=== PATIENT | female | born 1950 | race Caucasian/White ===

== ENCOUNTER 2019-04-07 12:21 | Inpatient (IN) | payer BC, OTHER | END 2019-04-16 11:15 | LOC: JER 12:21 → J4S 04-08 22:10 → JERBED 13:51 → J4W 21:43 ==

== ENCOUNTER 2020-11-22 10:33 | Inpatient (IN) | payer OTHER ==
[2020-11-22] MEDS ORDERED: FUROSEMIDE 40 MG/4 ML INJECTABLE VIAL IVPUSH ONE (11:06)
[2020-11-22] MEDS ORDERED: FUROSEMIDE 40 MG/4 ML INJECTABLE VIAL ONE (11:24)
[2020-11-22 11:55] LABS: EOS % 1.1 % (0-4.5); HEMATOCRIT 52.1 % (32.4-45.2); HEMOGLOBIN 16.9 GM/dL (10.7-15.3); LYMPH % 7.7 % (8-40); MCH 28.9 pg (25.7-33.7); MCHC 32.5 g/dl (32.0-36.0); MEAN CELL VOLUME 88.9 fl (80-96); MEAN PLT VOLUME 9.4 fl (7.5-11.1); MONO % 3.7 % (3.8-10.2); NEUT % 86.5 % (42.8-82.8); PLATELET COUNT 430 K/MM3 (134-434); RBC 5.86 M/mm3 (3.60-5.2); RDW 15.4 % (11.6-15.6); WHITE BLOOD COUNT 2.8 K/mm3 (4.0-10.0)
[2020-11-22 11:59] LABS: VENOUS BASE EXCESS 7.7 mmol/L (-2-2); VENOUS O2 SATURATION 20.1 % (70-80); VENOUS PH 7.269 (7.310-7.410)
[2020-11-22 12:01] LABS: VENOUS PCO2 88.6 mmHg (38-52)
[2020-11-22 12:03] LABS: INR 1.29 (0.83-1.09); PROTHROMBIN TIME (PATIENT) 15.5 SEC (9.7-13.0)
[2020-11-22 12:06] LABS: ACTIVATED PTT 24.5 SECONDS (25.2-36.5)
[2020-11-22 12:14] LABS: CHLORIDE 94 mmol/L (98-107); SODIUM 135 mmol/L (136-145)
[2020-11-22 12:16] LABS: CALCIUM 8.9 mg/dL (8.5-10.1)
[2020-11-22 12:17] LABS: ALBUMIN 2.6 g/dl (3.4-5.0); BLOOD UREA NITROGEN 50.4 mg/dL (7-18); CO2 39 mmol/L (21-32); GLUCOSE,RANDOM 105 mg/dL (74-106)
[2020-11-22 12:20] LABS: CREATININE 1.1 mg/dL (0.55-1.3); SGOT/AST 92 U/L (15-37)
[2020-11-22 12:21] LABS: BILIRUBIN,TOTAL 1.3 mg/dL (0.2-1)
[2020-11-22 12:23] LABS: ALK PHOS 163 U/L (45-117)
[2020-11-22 12:25] LABS: N-TERMINAL BNP 21629.5 pg/ml (5-125)
[2020-11-22 12:28] LABS: ANION GAP 3 MMOL/L (8-16); SGPT/ALT 31 U/L (13-61)
[2020-11-22 12:50] LABS: BILIRUBIN,DIRECT 0.6 mg/dL (0.0-0.2)
[2020-11-22 13:17] LABS: BLOOD UREA NITROGEN 51.3 mg/dL (7-18); CALCIUM 8.9 mg/dL (8.5-10.1)
[2020-11-22 13:18] LABS: ALBUMIN 2.6 g/dl (3.4-5.0)
[2020-11-22 13:20] LABS: CREATININE 1.1 mg/dL (0.55-1.3)
[2020-11-22 13:22] LABS: BILIRUBIN,TOTAL 1.4 mg/dL (0.2-1); TOT PROT 6.1 g/dl (6.4-8.2)
[2020-11-22] MEDS ORDERED: DEXTROSE 50%-WATER - 25 GM/50 ML VIAL IVPUSH ONE (13:25)
[2020-11-22] MEDS ORDERED: DEXTROSE 50%-WATER 25 GM/50 ML DISP.SYRIN ONE (13:28)
[2020-11-22] MEDS ORDERED: ACETAMINOPHEN 1000 MG/100 ML VIAL (NON FORMULARY) IVPB ONE ×2 (13:42→23:09)
[2020-11-22] MEDS ORDERED: ACETAMINOPHEN INJECTION 100 ML IVPB ONE ×2 (13:43→23:19)
[2020-11-22 13:52] LABS: ANISOCYTOSIS 0; MACROCYTOSIS 0; PLATELET ESTIMATE NORMAL
[2020-11-22 14:49] LABS: URINE APPEARANCE CLEAR; URINE BILIRUBIN NEGATIVE (NEGATIVE); URINE COLOR YELLOW; URINE GLUCOSE (UA) NEGATIVE (NEGATIVE); URINE KETONE NEGATIVE (NEGATIVE); URINE LEUK ESTERASE NEGATIVE (NEGATIVE); URINE NITRITE NEGATIVE (NEGATIVE); URINE PROTEIN TRACE (NEGATIVE); URINE UROBILINOGEN 0.2 mg/dL (0.2-1.0)
[2020-11-22] MEDS: NOREPINEPHRINE NS PREMIX 8,000 MCG/500 ML BAG IVPB SCH (15:40)
[2020-11-22] MEDS ORDERED: VASOPRESSIN 40 UNITS in SODIUM CHLORIDE 98 ML IVPB SCH (17:30)
[2020-11-22] MEDS: VASOPRESSIN 40 UNITS in SODIUM CHLORIDE 98 ML IVPB SCH (17:50)
[2020-11-22] MEDS ORDERED: PIPERACILLIN/TAZOB 3.375 GM 3.375 GM/50 ML BAG IVPB ONE (20:09)
[2020-11-22] MEDS: PIPERACILLIN/TAZOB 3.375 GM 3.375 GM in DEXTROSE 5%-WATER - 50 ML IVPB SCH (20:11)
[2020-11-22] MEDS ORDERED: ACETAMINOPHEN 1000 MG/100 ML VIAL (NON FORMULARY) IVPB PRN (21:11)
[2020-11-22] MEDS: DEXTROSE 5%-LACTATED RINGERS 1,000 ML IV SCH (22:09)
[2020-11-22] MEDS: POTASSIUM CHLORIDE 20 MEQ PREMIX IVPB 100 ML IVPB SCH ×2 (22:09→23:27)
[2020-11-22] MEDS ORDERED: LIDOCAINE HCL 2% JELLY 10 ML CARTRIDGE ONE (22:11)
[2020-11-23] MEDS: PIPERACILLIN/TAZOB 3.375 GM 3.375 GM in DEXTROSE 5%-WATER - 50 ML IVPB SCH ×4 (04:57→19:50)
[2020-11-23] MEDS: CHLORHEXIDINE GLUCONATE 4% CLEANSER FOR DECOLONIZATION TP SCH ×2 (05:20→21:33)
[2020-11-23] MEDS ORDERED: DEXTROSE 5%-WATER - 50 ML IVPB ONE (05:33)
[2020-11-23] MEDS ORDERED: PIPERACILLIN/TAZOBACTAM 3.375 GM VIAL IVPB ONE (05:33)
[2020-11-23 07:07] LABS: HEMATOCRIT 47.7 % (32.4-45.2); HEMOGLOBIN 15.2 GM/dL (10.7-15.3); MCH 28.8 pg (25.7-33.7); MCHC 31.8 g/dl (32.0-36.0); MEAN CELL VOLUME 90.8 fl (80-96); MEAN PLT VOLUME 9.1 fl (7.5-11.1); PLATELET COUNT 306 K/MM3 (134-434); RBC 5.25 M/mm3 (3.60-5.2); RDW 15.4 % (11.6-15.6); WHITE BLOOD COUNT 11.1 K/mm3 (4.0-10.0)
[2020-11-23 07:15] LABS: INR 1.49 (0.83-1.09); PROTHROMBIN TIME (PATIENT) 17.8 SEC (9.7-13.0)
[2020-11-23 07:18] LABS: ACTIVATED PTT 30.9 SECONDS (25.2-36.5)
[2020-11-23 07:23] LABS: ALBUMIN 2.2 g/dl (3.4-5.0); BLOOD UREA NITROGEN 56.8 mg/dL (7-18); CALCIUM 8.4 mg/dL (8.5-10.1); MAGNESIUM 1.6 mg/dL (1.8-2.4)
[2020-11-23 07:26] LABS: PHOSPHOROUS 7.8 mg/dL (2.5-4.9)
[2020-11-23 07:27] LABS: CREATININE 1.4 mg/dL (0.55-1.3)
[2020-11-23 07:28] LABS: BILIRUBIN,TOTAL 1.6 mg/dL (0.2-1); TOT PROT 5.6 g/dl (6.4-8.2)
[2020-11-23] MEDS ORDERED: fentaNYL CITRATE 250 MCG/5 ML VIAL ONE (07:46)
[2020-11-23] MEDS ORDERED: SUCCINYLCHOLINE CHLORIDE 200 MG/10 ML SYRINGE ONE (07:53)
[2020-11-23] MEDS ORDERED: ROCURONIUM BROMIDE 50 MG/5 ML SYRINGE ONE (07:54)
[2020-11-23] MEDS ORDERED: MIDAZOLAM HCL 2 MG/2 ML SINGLE DOSE VIAL ONE ×2 (07:55)
[2020-11-23] MEDS ORDERED: KETAMINE HCL 200 MG/20 ML VIAL ONE (07:55)
[2020-11-23] MEDS ORDERED: PROPOFOL 20 ML ONE (07:56)
[2020-11-23 09:44] LABS: ARTERIAL BLD GAS O2 SATURATION 99.3 mmHg (95-98); ARTERIAL BLOOD GAS BASE EXCESS 5.8 mmol/L (-2-2); ARTERIAL BLOOD GAS PO2 232.9 mmHg (80-100); ARTERIAL BLOOD GAS pH 7.205 (7.350-7.450)
[2020-11-23] MEDS ORDERED: FUROSEMIDE 40 MG/4 ML INJECTABLE VIAL IVPUSH SCH (10:00)
[2020-11-23] MEDS ORDERED: LACTATED RINGERS SOLUTION 1,000 ML IV SCH (10:15)
[2020-11-23] MEDS: MUPIROCIN 2% TOPICAL OINTMENT FOR DECOLONIZATION NS SCH ×2 (10:56→21:33)
[2020-11-23] MEDS ORDERED: FLUCONAZOLE 400 MG/D5W 200 ML IVPB SCH (11:30)
[2020-11-23 11:48] LABS: ARTERIAL BLOOD GAS BASE EXCESS 1.4 mmol/L (-2-2); ARTERIAL BLOOD GAS PO2 188.9 mmHg (80-100); ARTERIAL BLOOD GAS pH 7.236 (7.350-7.450)
[2020-11-23 11:49] LABS: VENT MODE SIMV
[2020-11-23 11:50] LABS: VENT RATE 14
[2020-11-23] MEDS ORDERED: PROPOFOL 1,000,000 MCG/100 ML VIAL ONE (11:54)
[2020-11-23] MEDS: FLUCONAZOLE 200 MG/NS 100 ML IVPB SCH (12:00)
[2020-11-23] MEDS ORDERED: PT OWN MED DRAWER 7, Y5N ONE (15:37)
[2020-11-23] MEDS ORDERED: DEXTROSE 5% IVPB SCH (16:00)
[2020-11-23] MEDS ORDERED: GENTAMICIN IVPB SCH (16:00)
[2020-11-23] MEDS ORDERED: WATER IVPB SCH (16:00)
[2020-11-23] MEDS ORDERED: DEXTROSE 5%-WATER 100 ML IVPB ONE (16:34)
[2020-11-23] MEDS: CEFTRIAXONE 2 GM in DEXTROSE 5%-WATER 2 GM/100 ML BAG IVPB SCH (16:57)
[2020-11-23] MEDS: NOREPINEPHRINE NS PREMIX 8,000 MCG/500 ML BAG IVPB SCH (16:58)
[2020-11-23] MEDS ORDERED: PIPERACILLIN/TAZOB 3.375 GM 3.375 GM in DEXTROSE 5%-WATER - 50 ML IVPB SCH (18:00)
[2020-11-23] MEDS: PROPOFOL 1,000,000 MCG/100 ML VIAL IVPB SCH (19:00)
[2020-11-23] MEDS ORDERED: FENTANYL NS IVPB 500 MCG/100 ML BAG IVPB SCH (20:00)
[2020-11-23] MEDS: DEXTROSE 5%-LACTATED RINGERS 1,000 ML IV SCH (21:33)
[2020-11-23] MEDS: VASOPRESSIN 40 UNITS in SODIUM CHLORIDE 98 ML IVPB SCH (22:23)
[2020-11-24 07:15] LABS: HEMATOCRIT 43.4 % (32.4-45.2); HEMOGLOBIN 14.3 GM/dL (10.7-15.3); MCHC 32.9 g/dl (32.0-36.0); MEAN CELL VOLUME 88.1 fl (80-96); MEAN PLT VOLUME 9.5 fl (7.5-11.1); PLATELET COUNT 257 K/MM3 (134-434); RBC 4.92 M/mm3 (3.60-5.2); RDW 15.3 % (11.6-15.6); WHITE BLOOD COUNT 20.2 K/mm3 (4.0-10.0)
[2020-11-24 07:37] LABS: CALCIUM 8.1 mg/dL (8.5-10.1)
[2020-11-24 07:38] LABS: ALBUMIN 1.9 g/dl (3.4-5.0); BLOOD UREA NITROGEN 53.6 mg/dL (7-18)
[2020-11-24 07:41] LABS: CREATININE 1.2 mg/dL (0.55-1.3)
[2020-11-24 07:42] LABS: BILIRUBIN,TOTAL 1.4 mg/dL (0.2-1)
[2020-11-24] MEDS ORDERED: PT OWN MED DRAWER 7, Y5N ONE (08:35)
[2020-11-24] MEDS ORDERED: DEXTROSE 5%-WATER 100 ML IVPB ONE (08:36)
[2020-11-24] MEDS: CEFTRIAXONE 2 GM in DEXTROSE 5%-WATER 2 GM/100 ML BAG IVPB SCH (09:03)
[2020-11-24] MEDS: MUPIROCIN 2% TOPICAL OINTMENT FOR DECOLONIZATION NS SCH ×2 (09:03→21:28)
[2020-11-24] MEDS: PANTOPRAZOLE SODIUM 40 MG VIAL IVPUSH SCH (10:50)
[2020-11-24] MEDS: FLUCONAZOLE 200 MG/NS 100 ML IVPB SCH (10:51)
[2020-11-24] MEDS: FUROSEMIDE 40 MG/4 ML INJECTABLE VIAL IVPUSH SCH (12:07)
[2020-11-24] MEDS: methylPREDNISolone NA SUCC 40 MG/1 ML VIAL IVPUSH SCH ×3 (12:07→21:27)
[2020-11-24] MEDS: HEPARIN NA (PORCINE) 5,000 UNITS/ML 1ML VIAL SQ SCH ×2 (15:00→21:28)
[2020-11-24] MEDS: ALBUTEROL SO4 2.5/IPRATROPIUM 0.5 INH SOL 3 ML VIAL.NEB. NEB SCH ×2 (15:17→20:30)
[2020-11-24] MEDS: NOREPINEPHRINE NS PREMIX 8,000 MCG/500 ML BAG IVPB SCH (15:46)
[2020-11-24] MEDS: FENTANYL NS IVPB 500 MCG/100 ML BAG IVPB SCH (19:00)
[2020-11-24] MEDS: CHLORHEXIDINE GLUCONATE 4% CLEANSER FOR DECOLONIZATION TP SCH (21:28)
[2020-11-24] MEDS: VASOPRESSIN 40 UNITS in SODIUM CHLORIDE 98 ML IVPB SCH (21:28)
[2020-11-25] MEDS: methylPREDNISolone NA SUCC 40 MG/1 ML VIAL IVPUSH SCH ×3 (03:02→18:09)
[2020-11-25] MEDS: HEPARIN NA (PORCINE) 5,000 UNITS/ML 1ML VIAL SQ SCH ×3 (05:59→21:37)
[2020-11-25 07:17] LABS: BASO % 0.1 % (0-2.0); HEMATOCRIT 41.9 % (32.4-45.2); HEMOGLOBIN 13.7 GM/dL (10.7-15.3); LYMPH % 2.4 % (8-40); MCH 28.7 pg (25.7-33.7); MCHC 32.7 g/dl (32.0-36.0); MEAN CELL VOLUME 87.8 fl (80-96); MEAN PLT VOLUME 9.6 fl (7.5-11.1); MONO % 1.9 % (3.8-10.2); NEUT % 95.6 % (42.8-82.8); PLATELET COUNT 217 K/MM3 (134-434); RBC 4.77 M/mm3 (3.60-5.2); RDW 15.4 % (11.6-15.6); WHITE BLOOD COUNT 20.5 K/mm3 (4.0-10.0)
[2020-11-25] MEDS: ALBUTEROL SO4 2.5/IPRATROPIUM 0.5 INH SOL 3 ML VIAL.NEB. NEB SCH ×4 (07:30→20:30)
[2020-11-25 07:44] LABS: ALBUMIN 1.8 g/dl (3.4-5.0); BLOOD UREA NITROGEN 56.4 mg/dL (7-18); CALCIUM 8.9 mg/dL (8.5-10.1); MAGNESIUM 1.8 mg/dL (1.8-2.4)
[2020-11-25 07:47] LABS: PHOSPHOROUS 5.3 mg/dL (2.5-4.9)
[2020-11-25 07:48] LABS: CREATININE 1.2 mg/dL (0.55-1.3)
[2020-11-25 07:49] LABS: BILIRUBIN,TOTAL 0.9 mg/dL (0.2-1); TOT PROT 5.1 g/dl (6.4-8.2)
[2020-11-25] MEDS ORDERED: PT OWN MED DRAWER 7, Y5N ONE (09:46)
[2020-11-25] MEDS ORDERED: DEXTROSE 5%-WATER 100 ML IVPB ONE (09:47)
[2020-11-25] MEDS ORDERED: DEXTROSE 5%-WATER - 50 ML IVPB ONE ×3 (09:47→21:09)
[2020-11-25] MEDS ORDERED: PIPERACILLIN/TAZOBACTAM 2.25 GM VIAL IVPB ONE ×3 (09:47→21:09)
[2020-11-25] MEDS: PANTOPRAZOLE SODIUM 40 MG VIAL IVPUSH SCH ×2 (10:08→21:37)
[2020-11-25] MEDS: FLUCONAZOLE 200 MG/NS 100 ML IVPB SCH (10:08)
[2020-11-25] MEDS: FUROSEMIDE 40 MG/4 ML INJECTABLE VIAL IVPUSH SCH (10:08)
[2020-11-25] MEDS: CEFTRIAXONE 2 GM in DEXTROSE 5%-WATER 2 GM/100 ML BAG IVPB SCH (10:09)
[2020-11-25] MEDS: PIPERACILLIN/TAZOB 2.25 GM 2.25 GM in DEXTROSE 5%-WATER - 50 ML IVPB SCH ×2 (10:09→18:09)
[2020-11-25 11:13] LABS: ANISOCYTOSIS 1+; MACROCYTOSIS 1+; OVALOCYTE 1+; PLATELET ESTIMATE NORMAL; TARGET CELLS 1+; TEAR DROP CELLS 1+; TOXIC GRANULATION 2+
[2020-11-25] MEDS: MUPIROCIN 2% TOPICAL OINTMENT FOR DECOLONIZATION NS SCH ×2 (11:30→21:37)
[2020-11-25] MEDS: CHLORHEXIDINE GLUCONATE 4% CLEANSER FOR DECOLONIZATION TP SCH (21:37)
[2020-11-26] MEDS ORDERED: ACETAMINOPHEN 1000 MG/100 ML VIAL (NON FORMULARY) IVPB PRN (01:26)
[2020-11-26] MEDS: MORPHINE SULFATE 2 MG/ML VIAL IVPUSH PRN ×4 (02:06→23:51)
[2020-11-26] MEDS: methylPREDNISolone NA SUCC 40 MG/1 ML VIAL IVPUSH SCH ×3 (02:42→17:52)
[2020-11-26] MEDS: PIPERACILLIN/TAZOB 2.25 GM 2.25 GM in DEXTROSE 5%-WATER - 50 ML IVPB SCH ×3 (02:42→17:52)
[2020-11-26] MEDS: HEPARIN NA (PORCINE) 5,000 UNITS/ML 1ML VIAL SQ SCH ×3 (06:38→22:09)
[2020-11-26] MEDS: VASOPRESSIN 40 UNITS in SODIUM CHLORIDE 98 ML IVPB SCH ×2 (06:38→19:48)
[2020-11-26] MEDS: NOREPINEPHRINE NS PREMIX 8,000 MCG/500 ML BAG IVPB SCH ×2 (06:39→16:03)
[2020-11-26 07:48] LABS: HEMATOCRIT 44.3 % (32.4-45.2); HEMOGLOBIN 14.4 GM/dL (10.7-15.3); MCH 28.5 pg (25.7-33.7); MCHC 32.5 g/dl (32.0-36.0); MEAN CELL VOLUME 87.7 fl (80-96); PLATELET COUNT 230 K/MM3 (134-434); RBC 5.04 M/mm3 (3.60-5.2); WHITE BLOOD COUNT 23.7 K/mm3 (4.0-10.0)
[2020-11-26] MEDS: ALBUTEROL SO4 2.5/IPRATROPIUM 0.5 INH SOL 3 ML VIAL.NEB. NEB SCH ×4 (08:00→20:00)
[2020-11-26 08:03] LABS: BLOOD UREA NITROGEN 71.4 mg/dL (7-18); CALCIUM 9.1 mg/dL (8.5-10.1)
[2020-11-26 08:06] LABS: ALBUMIN 2.1 g/dl (3.4-5.0); CREATININE 1.5 mg/dL (0.55-1.3)
[2020-11-26 08:08] LABS: BILIRUBIN,TOTAL 0.8 mg/dL (0.2-1); TOT PROT 5.7 g/dl (6.4-8.2)
[2020-11-26] MEDS ORDERED: DEXTROSE 5%-WATER - 1,000 ML IV SCH (08:15)
[2020-11-26] MEDS ORDERED: PIPERACILLIN/TAZOBACTAM 2.25 GM VIAL IVPB ONE ×3 (09:29→22:49)
[2020-11-26] MEDS ORDERED: DEXTROSE 5%-WATER 100 ML IVPB ONE (09:29)
[2020-11-26] MEDS ORDERED: DEXTROSE 5%-WATER - 50 ML IVPB ONE ×3 (09:29→22:49)
[2020-11-26] MEDS ORDERED: PT OWN MED DRAWER 7, Y5N ONE ×2 (09:29→15:14)
[2020-11-26] MEDS: CEFTRIAXONE 2 GM in DEXTROSE 5%-WATER 2 GM/100 ML BAG IVPB SCH (09:53)
[2020-11-26] MEDS: FLUCONAZOLE 200 MG/NS 100 ML IVPB SCH (09:53)
[2020-11-26] MEDS: PANTOPRAZOLE SODIUM 40 MG VIAL IVPUSH SCH ×2 (09:53→22:09)
[2020-11-26] MEDS: FUROSEMIDE 40 MG/4 ML INJECTABLE VIAL IVPUSH SCH (09:53)
[2020-11-26] MEDS: MUPIROCIN 2% TOPICAL OINTMENT FOR DECOLONIZATION NS SCH ×2 (10:02→22:09)
[2020-11-26] MEDS: AMINO ACIDS 4.25%/D5W 1,000 ML IV SCH ×2 (16:02→23:35)
[2020-11-26] MEDS: PROPOFOL 1,000,000 MCG/100 ML VIAL IVPB SCH (19:10)
[2020-11-26] MEDS: FENTANYL NS IVPB 500 MCG/100 ML BAG IVPB SCH (19:10)
[2020-11-26] MEDS: CHLORHEXIDINE GLUCONATE 4% CLEANSER FOR DECOLONIZATION TP SCH (22:09)
[2020-11-27] MEDS: methylPREDNISolone NA SUCC 40 MG/1 ML VIAL IVPUSH SCH ×3 (00:59→17:17)
[2020-11-27] MEDS: PIPERACILLIN/TAZOB 2.25 GM 2.25 GM in DEXTROSE 5%-WATER - 50 ML IVPB SCH ×3 (00:59→17:17)
[2020-11-27] MEDS: AMINO ACIDS 4.25%/D5W 1,000 ML IV SCH ×3 (04:04→23:00)
[2020-11-27] MEDS: HEPARIN NA (PORCINE) 5,000 UNITS/ML 1ML VIAL SQ SCH ×3 (06:25→21:24)
[2020-11-27] MEDS: MORPHINE SULFATE 2 MG/ML VIAL IVPUSH PRN ×3 (06:45→21:24)
[2020-11-27 07:07] LABS: HEMOGLOBIN 14.7 GM/dL (10.7-15.3); MCH 28.1 pg (25.7-33.7); MCHC 31.9 g/dl (32.0-36.0); MEAN PLT VOLUME 9.8 fl (7.5-11.1); PLATELET COUNT 209 K/MM3 (134-434); RBC 5.23 M/mm3 (3.60-5.2); RDW 15.3 % (11.6-15.6); WHITE BLOOD COUNT 19.1 K/mm3 (4.0-10.0)
[2020-11-27 07:28] LABS: CALCIUM 8.3 mg/dL (8.5-10.1)
[2020-11-27 07:29] LABS: BLOOD UREA NITROGEN 66.7 mg/dL (7-18)
[2020-11-27 07:32] LABS: CREATININE 1.1 mg/dL (0.55-1.3)
[2020-11-27 07:33] LABS: BILIRUBIN,TOTAL 1.1 mg/dL (0.2-1); TOT PROT 5.4 g/dl (6.4-8.2)
[2020-11-27] MEDS: ALBUTEROL SO4 2.5/IPRATROPIUM 0.5 INH SOL 3 ML VIAL.NEB. NEB SCH ×4 (08:40→19:55)
[2020-11-27] MEDS ORDERED: MAGNESIUM SULF 50% (8.12 MEQ/2 ML-1 GM VIAL) IVPB ONE (08:53)
[2020-11-27] MEDS ORDERED: PIPERACILLIN/TAZOBACTAM 2.25 GM VIAL IVPB ONE ×2 (08:55→17:06)
[2020-11-27] MEDS ORDERED: DEXTROSE 5%-WATER - 50 ML IVPB ONE ×2 (08:55→17:06)
[2020-11-27] MEDS ORDERED: DEXTROSE 5%-WATER 100 ML IVPB ONE (08:56)
[2020-11-27] MEDS ORDERED: ACETAMINOPHEN INJECTION 100 ML IVPB ONE (08:57)
[2020-11-27] MEDS: ACETAMINOPHEN 1000 MG/100 ML VIAL (NON FORMULARY) IVPB PRN ×2 (09:09→18:01)
[2020-11-27] MEDS: PANTOPRAZOLE SODIUM 40 MG VIAL IVPUSH SCH ×2 (09:11→21:25)
[2020-11-27] MEDS: CEFTRIAXONE 2 GM in DEXTROSE 5%-WATER 2 GM/100 ML BAG IVPB SCH (09:12)
[2020-11-27] MEDS: KCL 10 MEQ IVPB 10 MEQ/100 ML INFUS.BAG IVPB SCH (10:39)
[2020-11-27] MEDS: MUPIROCIN 2% TOPICAL OINTMENT FOR DECOLONIZATION NS SCH ×2 (10:40→22:01)
[2020-11-27] MEDS ORDERED: PT OWN MED DRAWER 7, Y5N ONE (10:43)
[2020-11-27] MEDS: FLUCONAZOLE 200 MG/NS 100 ML IVPB SCH (10:45)
[2020-11-27] MEDS: CHLORHEXIDINE GLUCONATE 4% CLEANSER FOR DECOLONIZATION TP SCH (21:25)
[2020-11-28] MEDS ORDERED: PIPERACILLIN/TAZOBACTAM 2.25 GM VIAL IVPB ONE ×4 (01:00→21:17)
[2020-11-28] MEDS ORDERED: DEXTROSE 5%-WATER - 50 ML IVPB ONE ×4 (01:01→21:17)
[2020-11-28] MEDS: ACETAMINOPHEN 1000 MG/100 ML VIAL (NON FORMULARY) IVPB PRN ×2 (01:17→06:05)
[2020-11-28] MEDS: PIPERACILLIN/TAZOB 2.25 GM 2.25 GM in DEXTROSE 5%-WATER - 50 ML IVPB SCH ×3 (01:17→17:31)
[2020-11-28] MEDS: methylPREDNISolone NA SUCC 40 MG/1 ML VIAL IVPUSH SCH ×4 (01:18→21:51)
[2020-11-28] MEDS: MORPHINE SULFATE 2 MG/ML VIAL IVPUSH PRN ×4 (02:06→21:33)
[2020-11-28] MEDS: HEPARIN NA (PORCINE) 5,000 UNITS/ML 1ML VIAL SQ SCH ×3 (06:04→21:51)
[2020-11-28] MEDS: AMINO ACIDS 4.25%/D5W 1,000 ML IV SCH ×2 (06:06→15:03)
[2020-11-28 06:59] LABS: HEMATOCRIT 48.1 % (32.4-45.2); HEMOGLOBIN 15.1 GM/dL (10.7-15.3); MCH 28.1 pg (25.7-33.7); MCHC 31.4 g/dl (32.0-36.0); MEAN CELL VOLUME 89.6 fl (80-96); MEAN PLT VOLUME 9.7 fl (7.5-11.1); PLATELET COUNT 209 K/MM3 (134-434); RBC 5.36 M/mm3 (3.60-5.2); RDW 15.6 % (11.6-15.6); WHITE BLOOD COUNT 18.2 K/mm3 (4.0-10.0)
[2020-11-28 07:13] LABS: BLOOD UREA NITROGEN 56.3 mg/dL (7-18); CALCIUM 9.1 mg/dL (8.5-10.1)
[2020-11-28 07:17] LABS: CREATININE 0.8 mg/dL (0.55-1.3)
[2020-11-28 07:18] LABS: TOT PROT 5.3 g/dl (6.4-8.2)
[2020-11-28 08:29] LABS: ANISOCYTOSIS 1+; MACROCYTOSIS 0; PLATELET ESTIMATE NORMAL
[2020-11-28] MEDS ORDERED: PT OWN MED DRAWER 7, Y5N ONE (08:59)
[2020-11-28] MEDS ORDERED: DEXTROSE 5%-WATER 100 ML IVPB ONE (09:00)
[2020-11-28] MEDS: CEFTRIAXONE 2 GM in DEXTROSE 5%-WATER 2 GM/100 ML BAG IVPB SCH (09:41)
[2020-11-28] MEDS: PANTOPRAZOLE SODIUM 40 MG VIAL IVPUSH SCH ×2 (09:41→21:51)
[2020-11-28] MEDS: FLUCONAZOLE 200 MG/NS 100 ML IVPB SCH (09:41)
[2020-11-28] MEDS: ALBUTEROL SO4 2.5/IPRATROPIUM 0.5 INH SOL 3 ML VIAL.NEB. NEB SCH ×4 (10:43→20:39)
[2020-11-28] MEDS ORDERED: ACETAMINOPHEN INJECTION 100 ML IVPB ONE (17:17)
[2020-11-28] MEDS ORDERED: ACETAMINOPHEN 1000 MG/100 ML VIAL (NON FORMULARY) IVPB PRN (17:27)
[2020-11-28] MEDS: CHLORHEXIDINE GLUCONATE 4% CLEANSER FOR DECOLONIZATION TP SCH (21:51)
[2020-11-29] MEDS: AMINO ACIDS 4.25%/D5W 1,000 ML IV SCH ×2 (00:02→14:19)
[2020-11-29] MEDS: PIPERACILLIN/TAZOB 2.25 GM 2.25 GM in DEXTROSE 5%-WATER - 50 ML IVPB SCH ×3 (02:13→17:10)
[2020-11-29] MEDS: HEPARIN NA (PORCINE) 5,000 UNITS/ML 1ML VIAL SQ SCH ×3 (05:37→21:18)
[2020-11-29] MEDS: MORPHINE SULFATE 2 MG/ML VIAL IVPUSH PRN ×4 (05:38→22:31)
[2020-11-29 06:48] LABS: HEMATOCRIT 47.9 % (32.4-45.2); HEMOGLOBIN 15.2 GM/dL (10.7-15.3); MCH 28.6 pg (25.7-33.7); MCHC 31.7 g/dl (32.0-36.0); MEAN CELL VOLUME 90.2 fl (80-96); MEAN PLT VOLUME 10.2 fl (7.5-11.1); PLATELET COUNT 234 K/MM3 (134-434); RBC 5.31 M/mm3 (3.60-5.2); RDW 15.6 % (11.6-15.6); WHITE BLOOD COUNT 17.9 K/mm3 (4.0-10.0)
[2020-11-29] MEDS: ALBUTEROL SO4 2.5/IPRATROPIUM 0.5 INH SOL 3 ML VIAL.NEB. NEB SCH ×2 (07:25→20:00)
[2020-11-29 07:39] LABS: BLOOD UREA NITROGEN 46.9 mg/dL (7-18)
[2020-11-29 07:42] LABS: CREATININE 0.6 mg/dL (0.55-1.3)
[2020-11-29] MEDS ORDERED: PIPERACILLIN/TAZOBACTAM 2.25 GM VIAL IVPB ONE ×2 (09:38→17:08)
[2020-11-29] MEDS ORDERED: DEXTROSE 5%-WATER - 50 ML IVPB ONE ×2 (09:38→17:08)
[2020-11-29] MEDS ORDERED: DEXTROSE 5%-WATER 100 ML IVPB ONE (09:39)
[2020-11-29] MEDS: methylPREDNISolone NA SUCC 40 MG/1 ML VIAL IVPUSH SCH ×2 (09:42→21:18)
[2020-11-29] MEDS: PANTOPRAZOLE SODIUM 40 MG VIAL IVPUSH SCH ×2 (09:43→21:22)
[2020-11-29] MEDS: CEFTRIAXONE 2 GM in DEXTROSE 5%-WATER 2 GM/100 ML BAG IVPB SCH (09:46)
[2020-11-29] MEDS: FLUCONAZOLE 200 MG/NS 100 ML IVPB SCH (11:15)
[2020-11-29] MEDS ORDERED: FUROSEMIDE 40 MG/4 ML INJECTABLE VIAL IVPUSH ONE (13:09)
[2020-11-29] MEDS ORDERED: MORPHINE SULFATE 2 MG/ML VIAL IVPUSH ONE (17:06)
[2020-11-29] MEDS ORDERED: MORPHINE SULFATE 2 MG/ML VIAL ONE (17:08)
[2020-11-29] MEDS ORDERED: ACETAMINOPHEN 1000 MG/100 ML VIAL (NON FORMULARY) IVPB PRN (17:08)
[2020-11-29] MEDS ORDERED: ALBUTEROL SO4 2.5/IPRATROPIUM 0.5 INH SOL 3 ML VIAL.NEB. NEB ONE (19:29)
[2020-11-29] MEDS: CHLORHEXIDINE GLUCONATE 4% CLEANSER FOR DECOLONIZATION TP SCH (21:19)
[2020-11-30] MEDS ORDERED: DEXTROSE 5%-WATER - 50 ML IVPB ONE ×3 (01:48→17:08)
[2020-11-30] MEDS ORDERED: PIPERACILLIN/TAZOBACTAM 2.25 GM VIAL IVPB ONE ×3 (01:48→17:08)
[2020-11-30] MEDS: PIPERACILLIN/TAZOB 2.25 GM 2.25 GM in DEXTROSE 5%-WATER - 50 ML IVPB SCH ×3 (01:50→17:39)
[2020-11-30] MEDS: HEPARIN NA (PORCINE) 5,000 UNITS/ML 1ML VIAL SQ SCH ×3 (06:01→21:54)
[2020-11-30 06:45] LABS: HEMATOCRIT 54.4 % (32.4-45.2); HEMOGLOBIN 16.8 GM/dL (10.7-15.3); MCH 28.5 pg (25.7-33.7); MEAN PLT VOLUME 10.2 fl (7.5-11.1); PLATELET COUNT 262 K/MM3 (134-434); RBC 5.91 M/mm3 (3.60-5.2); RDW 15.8 % (11.6-15.6); WHITE BLOOD COUNT 18.5 K/mm3 (4.0-10.0)
[2020-11-30 07:21] LABS: ALBUMIN 1.9 g/dl (3.4-5.0); BILIRUBIN,TOTAL 0.7 mg/dL (0.2-1); BLOOD UREA NITROGEN 44.9 mg/dL (7-18); CALCIUM 9.1 mg/dL (8.5-10.1); CREATININE 0.7 mg/dL (0.55-1.3); TOT PROT 5.5 g/dl (6.4-8.2)
[2020-11-30] MEDS ORDERED: DEXTROSE 5%-WATER 100 ML IVPB ONE (08:53)
[2020-11-30] MEDS: PANTOPRAZOLE SODIUM 40 MG VIAL IVPUSH SCH ×2 (09:17→21:54)
[2020-11-30] MEDS: methylPREDNISolone NA SUCC 40 MG/1 ML VIAL IVPUSH SCH ×2 (09:17→21:54)
[2020-11-30] MEDS: CEFTRIAXONE 2 GM in DEXTROSE 5%-WATER 2 GM/100 ML BAG IVPB SCH (09:17)
[2020-11-30] MEDS: FLUCONAZOLE 200 MG/NS 100 ML IVPB SCH (09:48)
[2020-11-30] MEDS ORDERED: FUROSEMIDE 40 MG/4 ML INJECTABLE VIAL IVPUSH ONE (12:00)
[2020-11-30] MEDS: oxyCODONE HCL 5 MG TABLET PO PRN (12:30)
[2020-11-30] MEDS: CHLORHEXIDINE GLUCONATE 4% CLEANSER FOR DECOLONIZATION TP SCH (21:54)
[2020-11-30] MEDS: MORPHINE SULFATE 2 MG/ML VIAL IVPUSH PRN (21:57)
[2020-12-01] MEDS ORDERED: PIPERACILLIN/TAZOBACTAM 2.25 GM VIAL IVPB ONE ×3 (01:13→16:03)
[2020-12-01] MEDS ORDERED: DEXTROSE 5%-WATER - 50 ML IVPB ONE ×3 (01:13→16:03)
[2020-12-01] MEDS: PIPERACILLIN/TAZOB 2.25 GM 2.25 GM in DEXTROSE 5%-WATER - 50 ML IVPB SCH ×3 (01:20→17:02)
[2020-12-01] MEDS: HEPARIN NA (PORCINE) 5,000 UNITS/ML 1ML VIAL SQ SCH ×3 (06:11→21:27)
[2020-12-01] MEDS: oxyCODONE HCL 5 MG TABLET PO PRN ×2 (06:12→15:28)
[2020-12-01 07:47] LABS: HEMATOCRIT 49.9 % (32.4-45.2); HEMOGLOBIN 15.1 GM/dL (10.7-15.3); MCH 27.8 pg (25.7-33.7); MCHC 30.2 g/dl (32.0-36.0); MEAN CELL VOLUME 92.1 fl (80-96); MEAN PLT VOLUME 10.4 fl (7.5-11.1); PLATELET COUNT 317 K/MM3 (134-434); RBC 5.42 M/mm3 (3.60-5.2); RDW 15.9 % (11.6-15.6); WHITE BLOOD COUNT 16.9 K/mm3 (4.0-10.0)
[2020-12-01 07:58] LABS: CHLORIDE 97 mmol/L (98-107); SODIUM 143 mmol/L (136-145)
[2020-12-01 08:12] LABS: ALBUMIN 1.9 g/dl (3.4-5.0); CALCIUM 9.4 mg/dL (8.5-10.1); GLUCOSE,RANDOM 105 mg/dL (74-106)
[2020-12-01 08:16] LABS: CREATININE 0.7 mg/dL (0.55-1.3); SGOT/AST 31 U/L (15-37); SGPT/ALT 29 U/L (13-61)
[2020-12-01 08:18] LABS: BILIRUBIN,TOTAL 0.7 mg/dL (0.2-1); TOT PROT 5.3 g/dl (6.4-8.2)
[2020-12-01 08:22] LABS: ALK PHOS 199 U/L (45-117); ANION GAP 1 MMOL/L (8-16); CO2 > 45 mmol/L (21-32)
[2020-12-01] MEDS ORDERED: DEXTROSE 5%-WATER 100 ML IVPB ONE (09:53)
[2020-12-01] MEDS: FLUCONAZOLE 200 MG/NS 100 ML IVPB SCH (09:55)
[2020-12-01] MEDS: CEFTRIAXONE 2 GM in DEXTROSE 5%-WATER 2 GM/100 ML BAG IVPB SCH (09:56)
[2020-12-01] MEDS: PANTOPRAZOLE SODIUM 40 MG VIAL IVPUSH SCH ×2 (09:58→21:27)
[2020-12-01] MEDS: methylPREDNISolone NA SUCC 40 MG/1 ML VIAL IVPUSH SCH ×2 (09:58→21:27)
[2020-12-01] MEDS ORDERED: AMINO ACIDS 4.25%/D5W 1,000 ML IV SCH (13:00)
[2020-12-01] MEDS ORDERED: [UNRECOGNIZED DRUG - OTHER] IV SCH (13:00)
[2020-12-01] MEDS: CHLORHEXIDINE GLUCONATE 4% CLEANSER FOR DECOLONIZATION TP SCH (21:27)
[2020-12-02] MEDS ORDERED: PIPERACILLIN/TAZOBACTAM 2.25 GM VIAL IVPB ONE ×3 (02:31→17:05)
[2020-12-02] MEDS ORDERED: DEXTROSE 5%-WATER - 50 ML IVPB ONE ×3 (02:31→17:05)
[2020-12-02] MEDS: PIPERACILLIN/TAZOB 2.25 GM 2.25 GM in DEXTROSE 5%-WATER - 50 ML IVPB SCH ×3 (02:34→17:13)
[2020-12-02] MEDS: HEPARIN NA (PORCINE) 5,000 UNITS/ML 1ML VIAL SQ SCH ×3 (05:13→21:06)
[2020-12-02] MEDS ORDERED: MULTIVIT INJ. ADULT COMBO WITH VIT K 1 COMBO 10 ML VIAL IV SCH ×3 (07:04→13:00)
[2020-12-02 07:06] LABS: HEMATOCRIT 50.3 % (32.4-45.2); MCH 27.4 pg (25.7-33.7); MCHC 29.9 g/dl (32.0-36.0); MEAN CELL VOLUME 91.7 fl (80-96); MEAN PLT VOLUME 10.1 fl (7.5-11.1); PLATELET COUNT 370 K/MM3 (134-434); RBC 5.48 M/mm3 (3.60-5.2); RDW 16.5 % (11.6-15.6); WHITE BLOOD COUNT 18.2 K/mm3 (4.0-10.0)
[2020-12-02 07:17] LABS: CHLORIDE 97 mmol/L (98-107); SODIUM 143 mmol/L (136-145)
[2020-12-02 07:31] LABS: BLOOD UREA NITROGEN 30.7 mg/dL (7-18)
[2020-12-02 07:32] LABS: CALCIUM 9.2 mg/dL (8.5-10.1); GLUCOSE,RANDOM 142 mg/dL (74-106)
[2020-12-02 07:33] LABS: CREATININE 0.5 mg/dL (0.55-1.3); MAGNESIUM 2.3 mg/dL (1.8-2.4); PHOSPHOROUS 1.6 mg/dL (2.5-4.9); SGOT/AST 30 U/L (15-37); SGPT/ALT 36 U/L (13-61)
[2020-12-02 07:35] LABS: BILIRUBIN,TOTAL 0.5 mg/dL (0.2-1); TOT PROT 5.6 g/dl (6.4-8.2)
[2020-12-02 07:46] LABS: ALK PHOS 241 U/L (45-117); ANION GAP 1 MMOL/L (8-16); CO2 > 45 mmol/L (21-32)
[2020-12-02] MEDS ORDERED: PT OWN MED DRAWER 7, Y5N ONE ×2 (09:46→14:24)
[2020-12-02] MEDS ORDERED: DEXTROSE 5%-WATER 100 ML IVPB ONE (09:47)
[2020-12-02] MEDS: methylPREDNISolone NA SUCC 40 MG/1 ML VIAL IVPUSH SCH ×2 (09:49→21:05)
[2020-12-02] MEDS: PANTOPRAZOLE SODIUM 40 MG VIAL IVPUSH SCH ×2 (09:51→21:06)
[2020-12-02] MEDS: FLUCONAZOLE 200 MG/NS 100 ML IVPB SCH (09:51)
[2020-12-02] MEDS: CEFTRIAXONE 2 GM in DEXTROSE 5%-WATER 2 GM/100 ML BAG IVPB SCH (09:51)
[2020-12-02] MEDS: MORPHINE SULFATE 2 MG/ML VIAL IVPUSH PRN (09:53)
[2020-12-02] MEDS ORDERED: THIAMINE HCL 200 MG/2 ML VIAL IVPB SCH (10:00)
[2020-12-02] MEDS ORDERED: MORPHINE SULFATE 2 MG/ML VIAL IVPUSH PRN (11:23)
[2020-12-02] MEDS ORDERED: oxyCODONE HCL 5 MG TABLET PO PRN (11:23)
[2020-12-02] MEDS: AMINO ACIDS 4.25%/D5W 1,000 ML IV SCH (14:37)
[2020-12-02] MEDS: AMINO ACIDS/PROTEIN HYDROLYS 30 ML LIQUID.PKT PO SCH (17:13)
[2020-12-02] MEDS ORDERED: AMINO ACIDS/PROTEIN HYDROLYS 30 ML LIQUID.PKT PO SCH (17:30)
[2020-12-02] MEDS ORDERED: MELATONIN 5 MG TABLETS PO ONE (20:24)
[2020-12-02] MEDS ORDERED: CHLORHEXIDINE GLUCONATE 4% CLEANSER FOR DECOLONIZATION TP SCH (22:00)
[2020-12-03] MEDS ORDERED: DEXTROSE 5%-WATER - 50 ML IVPB ONE ×3 (00:29→17:44)
[2020-12-03] MEDS ORDERED: PIPERACILLIN/TAZOBACTAM 2.25 GM VIAL IVPB ONE ×3 (00:29→17:43)
[2020-12-03] MEDS: PIPERACILLIN/TAZOB 2.25 GM 2.25 GM in DEXTROSE 5%-WATER - 50 ML IVPB SCH ×3 (02:07→18:14)
[2020-12-03] MEDS: HEPARIN NA (PORCINE) 5,000 UNITS/ML 1ML VIAL SQ SCH ×3 (06:18→21:53)
[2020-12-03 06:31] LABS: BASO % 0.1 % (0-2.0); HEMATOCRIT 49.4 % (32.4-45.2); HEMOGLOBIN 15.4 GM/dL (10.7-15.3); LYMPH % 2.5 % (8-40); MCH 27.6 pg (25.7-33.7); MCHC 31.2 g/dl (32.0-36.0); MEAN CELL VOLUME 88.4 fl (80-96); MEAN PLT VOLUME 9.8 fl (7.5-11.1); MONO % 3.6 % (3.8-10.2); NEUT % 93.8 % (42.8-82.8); PLATELET COUNT 372 K/MM3 (134-434); RBC 5.59 M/mm3 (3.60-5.2); RDW 16.2 % (11.6-15.6); WHITE BLOOD COUNT 17.3 K/mm3 (4.0-10.0)
[2020-12-03 06:48] LABS: BLOOD UREA NITROGEN 29.3 mg/dL (7-18); CALCIUM 8.9 mg/dL (8.5-10.1); MAGNESIUM 2.1 mg/dL (1.8-2.4)
[2020-12-03 06:52] LABS: CREATININE 0.4 mg/dL (0.55-1.3); PHOSPHOROUS 1.3 mg/dL (2.5-4.9)
[2020-12-03 06:53] LABS: BILIRUBIN,TOTAL 0.8 mg/dL (0.2-1); TOT PROT 5.4 g/dl (6.4-8.2)
[2020-12-03] MEDS: AMINO ACIDS/PROTEIN HYDROLYS 30 ML LIQUID.PKT PO SCH ×2 (09:03→18:16)
[2020-12-03 09:20] LABS: ANISOCYTOSIS 0; MACROCYTOSIS 0; PLATELET ESTIMATE NORMAL
[2020-12-03] MEDS ORDERED: DEXTROSE 5%-WATER 100 ML IVPB ONE ×2 (09:50→10:03)
[2020-12-03] MEDS: methylPREDNISolone NA SUCC 40 MG/1 ML VIAL IVPUSH SCH ×2 (10:00→21:52)
[2020-12-03] MEDS ORDERED: FLUCONAZOLE 200 MG/NS 100 ML IVPB SCH (10:00)
[2020-12-03] MEDS: PANTOPRAZOLE SODIUM 40 MG VIAL IVPUSH SCH ×2 (10:00→22:02)
[2020-12-03] MEDS ORDERED: THIAMINE HCL 200 MG/2 ML VIAL IVPB SCH (10:00)
[2020-12-03] MEDS: MULTIVIT INJ. ADULT COMBO WITH VIT K 1 COMBO 10 ML VIAL IV SCH ×2 (10:00→14:04)
[2020-12-03] MEDS ORDERED: CEFTRIAXONE 2 GM in DEXTROSE 5%-WATER 2 GM/100 ML BAG IVPB SCH (10:00)
[2020-12-03] MEDS ORDERED: PT OWN MED DRAWER 7, Y5N ONE (13:22)
[2020-12-03] MEDS: AMINO ACIDS 4.25%/D5W 1,000 ML IV SCH (14:04)
[2020-12-03] MEDS ORDERED: oxyCODONE HCL 5 MG TABLET PO PRN (17:45)
[2020-12-03] MEDS ORDERED: MORPHINE SULFATE 2 MG/ML VIAL IVPUSH PRN (17:45)
[2020-12-03] MEDS ORDERED: HALOPERIDOL LACTATE 5 MG/ML IM ONE (21:26)
[2020-12-03] MEDS ORDERED: CHLORHEXIDINE GLUCONATE 4% CLEANSER FOR DECOLONIZATION TP SCH (22:00)
[2020-12-04] MEDS ORDERED: PIPERACILLIN/TAZOBACTAM 2.25 GM VIAL IVPB ONE ×2 (01:00→15:11)
[2020-12-04] MEDS ORDERED: DEXTROSE 5%-WATER - 50 ML IVPB ONE ×2 (01:01→15:12)
[2020-12-04] MEDS: PIPERACILLIN/TAZOB 2.25 GM 2.25 GM in DEXTROSE 5%-WATER - 50 ML IVPB SCH ×3 (01:02→17:29)
[2020-12-04] MEDS: HEPARIN NA (PORCINE) 5,000 UNITS/ML 1ML VIAL SQ SCH ×3 (06:29→23:16)
[2020-12-04] MEDS: AMINO ACIDS/PROTEIN HYDROLYS 30 ML LIQUID.PKT PO SCH ×2 (08:01→17:29)
[2020-12-04] MEDS: PANTOPRAZOLE SODIUM 40 MG VIAL IVPUSH SCH ×3 (10:59→23:20)
[2020-12-04] MEDS: methylPREDNISolone NA SUCC 40 MG/1 ML VIAL IVPUSH SCH ×3 (10:59→23:16)
[2020-12-04] MEDS: THIAMINE HCL 200 MG/2 ML VIAL IVPB SCH (11:00)
[2020-12-04] MEDS: MULTIVIT INJ. ADULT COMBO WITH VIT K 1 COMBO 10 ML VIAL IV SCH ×2 (11:04→16:15)
[2020-12-04] MEDS: AMINO ACIDS 4.25%/D5W 1,000 ML IV SCH (12:49)
[2020-12-05] MEDS ORDERED: PIPERACILLIN/TAZOBACTAM 2.25 GM VIAL IVPB ONE (01:46)
[2020-12-05] MEDS ORDERED: DEXTROSE 5%-WATER - 50 ML IVPB ONE (01:48)
[2020-12-05] MEDS: PIPERACILLIN/TAZOB 2.25 GM 2.25 GM in DEXTROSE 5%-WATER - 50 ML IVPB SCH (02:12)
[2020-12-05] MEDS: HEPARIN NA (PORCINE) 5,000 UNITS/ML 1ML VIAL SQ SCH ×3 (06:40→22:21)
[2020-12-05 08:31] LABS: BASO % 0.1 % (0-2.0); HEMATOCRIT 47.3 % (32.4-45.2); HEMOGLOBIN 15.4 GM/dL (10.7-15.3); LYMPH % 1.7 % (8-40); MCH 27.6 pg (25.7-33.7); MCHC 32.6 g/dl (32.0-36.0); MEAN CELL VOLUME 84.6 fl (80-96); MEAN PLT VOLUME 9.8 fl (7.5-11.1); NEUT % 95.2 % (42.8-82.8); PLATELET COUNT 356 K/MM3 (134-434); RBC 5.58 M/mm3 (3.60-5.2); RDW 16.1 % (11.6-15.6); WHITE BLOOD COUNT 20.5 K/mm3 (4.0-10.0)
[2020-12-05 08:51] LABS: CALCIUM 8.7 mg/dL (8.5-10.1)
[2020-12-05 08:53] LABS: ALBUMIN 2.1 g/dl (3.4-5.0); BLOOD UREA NITROGEN 20.3 mg/dL (7-18)
[2020-12-05 08:55] LABS: CREATININE 0.4 mg/dL (0.55-1.3)
[2020-12-05 08:56] LABS: BILIRUBIN,TOTAL 0.9 mg/dL (0.2-1); TOT PROT 5.3 g/dl (6.4-8.2)
[2020-12-05] MEDS ORDERED: DEXTROSE 5%-WATER 100 ML IVPB ONE (08:56)
[2020-12-05] MEDS: methylPREDNISolone NA SUCC 40 MG/1 ML VIAL IVPUSH SCH (09:54)
[2020-12-05] MEDS: AMINO ACIDS/PROTEIN HYDROLYS 30 ML LIQUID.PKT PO SCH ×2 (09:54→16:30)
[2020-12-05] MEDS: PANTOPRAZOLE SODIUM 40 MG VIAL IVPUSH SCH ×2 (09:55→22:18)
[2020-12-05] MEDS: THIAMINE HCL 200 MG/2 ML VIAL IVPB SCH (09:55)
[2020-12-05] MEDS ORDERED: CEFTRIAXONE 2 GM in DEXTROSE 5%-WATER 2 GM/100 ML BAG IVPB SCH (10:00)
[2020-12-05 10:41] LABS: ANISOCYTOSIS 2+; MACROCYTOSIS 0; PLATELET ESTIMATE NORMAL; TARGET CELLS 1+
[2020-12-05] MEDS: AMINO ACIDS 4.25%/D5W 1,000 ML IV SCH (15:59)
[2020-12-05] MEDS: MULTIVIT INJ. ADULT COMBO WITH VIT K 1 COMBO 10 ML VIAL IV SCH (17:32)
[2020-12-05] MEDS ORDERED: MORPHINE SULFATE 2 MG/ML VIAL IVPUSH PRN (20:21)
[2020-12-05] MEDS ORDERED: oxyCODONE HCL 5 MG TABLET PO PRN (20:21)
[2020-12-05] MEDS ORDERED: SODIUM CHLORIDE 0.9% 500 ML INFUS.BAG IV ONE (22:51)
[2020-12-06] MEDS ORDERED: SODIUM CHLORIDE 1,000 ML IV STA (01:15)
[2020-12-06] MEDS: LACTATED RINGERS SOLUTION 1,000 ML/1,000 ML INFUS.BAG IV SCH (02:00)
[2020-12-06] MEDS ORDERED: VANCOMYCIN 1 GM in D5W (PRE-DOCKED) 1,000 MG/250 ML IVPB ONE (04:18)
[2020-12-06] MEDS ORDERED: CEFEPIME HCL/D5W 2 GM/50 ML BAG IVPB SCH (04:30)
[2020-12-06 05:22] LABS: ARTERIAL BLD GAS O2 SATURATION 88.5 mmHg (95-98); ARTERIAL BLOOD GAS BASE EXCESS 7.4 mmol/L (-2-2); ARTERIAL BLOOD GAS pH 7.431 (7.350-7.450)
[2020-12-06 05:23] LABS: ALLENS TEST POSITIVE
[2020-12-06] MEDS: CEFEPIME 2 GM in SODIUM CHLORIDE 100 ML IVPB SCH ×3 (05:42→17:03)
[2020-12-06] MEDS: HYDROCORTISONE SOD SUCCINATE 100 MG/2 ML VIAL IVPUSH SCH ×3 (05:43→17:03)
[2020-12-06] MEDS: HEPARIN NA (PORCINE) 5,000 UNITS/ML 1ML VIAL SQ SCH ×2 (05:43→14:02)
[2020-12-06 06:07] LABS: INR 1.19 (0.83-1.09); PROTHROMBIN TIME (PATIENT) 14.6 SEC (9.7-13.0)
[2020-12-06 06:10] LABS: ACTIVATED PTT 21.1 SECONDS (25.2-36.5); BASO % 0.8 % (0-2.0); CALCIUM 8.1 mg/dL (8.5-10.1); HEMATOCRIT 49.6 % (32.4-45.2); LYMPH % 2.2 % (8-40); MCH 27.7 pg (25.7-33.7); MCHC 32.3 g/dl (32.0-36.0); MEAN CELL VOLUME 85.6 fl (80-96); MONO % 1.5 % (3.8-10.2); NEUT % 95.5 % (42.8-82.8); RBC 5.79 M/mm3 (3.60-5.2); RDW 16.3 % (11.6-15.6)
[2020-12-06 06:11] LABS: BLOOD UREA NITROGEN 37.3 mg/dL (7-18); MAGNESIUM 1.6 mg/dL (1.8-2.4)
[2020-12-06 06:14] LABS: CREATININE 0.8 mg/dL (0.55-1.3); PHOSPHOROUS 3.2 mg/dL (2.5-4.9)
[2020-12-06 06:19] LABS: N-TERMINAL BNP 20425.9 pg/ml (5-125)
[2020-12-06 06:49] LABS: LACTIC ACID 3.9 mmol/L (0.4-2.0)
[2020-12-06] MEDS: MULTIVIT INJ. ADULT COMBO WITH VIT K 1 COMBO 10 ML VIAL IV SCH ×2 (07:10→17:04)
[2020-12-06] MEDS: NOREPINEPHRINE BITARTRATE 8,000 MCG/500 ML BAG IVPB SCH (07:10)
[2020-12-06] MEDS: AMINO ACIDS/PROTEIN HYDROLYS 30 ML LIQUID.PKT PO SCH (08:22)
[2020-12-06] MEDS ORDERED: ceFAZolin SODIUM 1 GM VIAL IVPB ONE (09:05)
[2020-12-06] MEDS ORDERED: ASCORBIC ACID 500 MG TABLET (FP) PO SCH (10:00)
[2020-12-06] MEDS ORDERED: THIAMINE HCL 200 MG/2 ML VIAL IVPB SCH (10:00)
[2020-12-06] MEDS ORDERED: predniSONE 20 MG TABLET (UD) PO SCH (10:00)
[2020-12-06] MEDS: PANTOPRAZOLE SODIUM 40 MG VIAL IVPUSH SCH (10:23)
[2020-12-06] MEDS ORDERED: PT OWN MED DRAWER 7, Y5N ONE ×4 (10:49→17:01)
[2020-12-06 12:25] LABS: MEAN PLT VOLUME 10.9 fl (7.5-11.1); PLATELET COUNT 264 K/MM3 (134-434)
[2020-12-06 12:28] LABS: PLATELET ESTIMATE NORMAL
[2020-12-06] MEDS ORDERED: AMINO ACIDS 4.25%/D5W 1,000 ML IV SCH (13:00)
[2020-12-06] MEDS ORDERED: fentaNYL CITRATE 250 MCG/5 ML VIAL ONE (19:35)
[2020-12-06] MEDS ORDERED: PROPOFOL 20 ML ONE (19:36)
[2020-12-06] MEDS ORDERED: ROCURONIUM BROMIDE 50 MG/5 ML SYRINGE ONE (19:38)
[2020-12-06] MEDS ORDERED: EPHEDRINE SULFATE/0.9% NACL/PF 50 MG/10 ML SYRINGE NR ONE ×2 (19:39→21:03)
[2020-12-06] MEDS ORDERED: ETOMIDATE 20 MG/10 ML AMPUL IVPUSH ONE (21:05)
[2020-12-06] MEDS ORDERED: ESMOLOL HCL 100,000 MCG/10 ML VIAL ONE (21:13)
[2020-12-06] MEDS ORDERED: PHENYLEPHRINE HCL 10 MG/1 ML SINGLE DOSE VIAL ONE (21:23)
[2020-12-06] MEDS ORDERED: BENZOIN/ALOE VERA/STORAX/TOLU 58 ML BOTTLE ONE (22:01)
[2020-12-06] MEDS ORDERED: VECURONIUM BROMIDE 100 MG/100 ML BAG IVPB SCH (22:30)
[2020-12-06] MEDS ORDERED: MIDAZOLAM 100 MG in SODIUM CHLORIDE 100 ML IVPB SCH (22:30)
[2020-12-06] MEDS ORDERED: FENTANYL IVPB 500 MCG/100 ML BAG IVPB SCH (22:30)
[2020-12-06] MEDS ORDERED: MIDAZOLAM IN 0.9 % SOD.CHLORID 1 MG/1 ML PLAST..BAG ONE (22:48)
[2020-12-06] MEDS: FENTANYL IVPB 500 MCG/100 ML BAG IVPB SCH (23:39)
[2020-12-07] MEDS: AMINO ACIDS/PROTEIN HYDROLYS 30 ML LIQUID.PKT PO SCH (02:24)
[2020-12-07] MEDS: HEPARIN NA (PORCINE) 5,000 UNITS/ML 1ML VIAL SQ SCH ×2 (02:24→05:05)
[2020-12-07] MEDS: CEFEPIME 2 GM in DEXTROSE 5%-WATER 100 ML IVPB SCH ×2 (02:25→10:17)
[2020-12-07] MEDS: HYDROCORTISONE SOD SUCCINATE 100 MG/2 ML VIAL IVPUSH SCH ×3 (02:25→17:07)
[2020-12-07] MEDS: LACTATED RINGERS SOLUTION 1,000 ML/1,000 ML INFUS.BAG IV SCH ×2 (02:25→08:23)
[2020-12-07] MEDS: PANTOPRAZOLE SODIUM 40 MG VIAL IVPUSH SCH ×3 (02:25→21:40)
[2020-12-07] MEDS: MIDAZOLAM IN 0.9 % SOD.CHLORID 100 MG/100 ML PLAST..BAG IVPB SCH ×2 (04:26→10:27)
[2020-12-07] MEDS: NOREPINEPHRINE BITARTRATE 8,000 MCG/500 ML BAG IVPB SCH ×2 (05:05→10:15)
[2020-12-07 07:00] LABS: HEMATOCRIT 51.9 % (32.4-45.2); HEMOGLOBIN 16.5 GM/dL (10.7-15.3); MCH 27.6 pg (25.7-33.7); MCHC 31.8 g/dl (32.0-36.0); MEAN CELL VOLUME 86.9 fl (80-96); MEAN PLT VOLUME 12.8 fl (7.5-11.1); RBC 5.97 M/mm3 (3.60-5.2); RDW 16.3 % (11.6-15.6); WHITE BLOOD COUNT 22.5 K/mm3 (4.0-10.0)
[2020-12-07] MEDS ORDERED: MEROPENEM 1 GM in DEXTROSE 5%-WATER 100 ML IVPB ONE (07:20)
[2020-12-07 07:40] LABS: BLOOD UREA NITROGEN 54.3 mg/dL (7-18); CALCIUM 7.3 mg/dL (8.5-10.1); MAGNESIUM 1.8 mg/dL (1.8-2.4)
[2020-12-07 07:43] LABS: CREATININE 1.3 mg/dL (0.55-1.3)
[2020-12-07 07:44] LABS: PHOSPHOROUS 5.8 mg/dL (2.5-4.9)
[2020-12-07 07:45] LABS: BILIRUBIN,TOTAL 0.9 mg/dL (0.2-1)
[2020-12-07 07:49] LABS: ALBUMIN 1.2 g/dl (3.4-5.0)
[2020-12-07] MEDS ORDERED: oxyCODONE HCL 5 MG TABLET PO PRN (08:22)
[2020-12-07] MEDS ORDERED: MORPHINE SULFATE 2 MG/ML VIAL IVPUSH PRN (08:22)
[2020-12-07] MEDS ORDERED: PT OWN MED DRAWER 7, Y5N ONE (09:26)
[2020-12-07] MEDS ORDERED: ASCORBIC ACID 500 MG TABLET (FP) PO SCH (10:00)
[2020-12-07] MEDS ORDERED: CEFEPIME 2 GM in SODIUM CHLORIDE 100 ML IVPB SCH ×2 (10:00→18:00)
[2020-12-07] MEDS: MUPIROCIN 2% TOPICAL OINTMENT FOR DECOLONIZATION NS SCH ×2 (10:24→21:39)
[2020-12-07] MEDS: FENTANYL IVPB 500 MCG/100 ML BAG IVPB SCH (10:25)
[2020-12-07 11:43] LABS: PLATELET COUNT 58 K/MM3 (134-434)
[2020-12-07] MEDS ORDERED: AMINO ACIDS 4.25%/D5W 1,000 ML IV SCH (13:00)
[2020-12-07] MEDS ORDERED: VASOPRESSIN 40 UNITS in SODIUM CHLORIDE 98 ML IVPB SCH (13:00)
[2020-12-07] MEDS ORDERED: FLUDROCORTISONE ACETATE 0.1 MG TABLET (FP) PO SCH (14:00)
[2020-12-07] MEDS ORDERED: HEPARIN NA (PORCINE) 5,000 UNITS/ML 1ML VIAL SQ SCH (14:00)
[2020-12-07] MEDS ORDERED: BACITRACIN 15 GM TUBE TOPICAL OINTMENT ONE (15:17)
[2020-12-07] MEDS ORDERED: DEXTROSE 5%-WATER 100 ML IVPB ONE (16:05)
[2020-12-07] MEDS ORDERED: MEROPENEM 1 GM VIAL (RESTRICTED TO ID) IVPB ONE (16:05)
[2020-12-07] MEDS: MEROPENEM 1 GM in DEXTROSE 5%-WATER 100 ML IVPB SCH (17:02)
[2020-12-07] MEDS ORDERED: AMINO ACIDS/PROTEIN HYDROLYS 30 ML LIQUID.PKT PO SCH (17:30)
[2020-12-07] MEDS: [UNRECOGNIZED DRUG - OTHER] IVPB SCH (17:39)
[2020-12-07] MEDS: THIAMINE HCL IVPB SCH (17:39)
[2020-12-07] MEDS: SODIUM CHLORIDE IVPB SCH (17:39)
[2020-12-07] MEDS: FOLIC ACID IVPB SCH (17:39)
[2020-12-07] MEDS: VASOPRESSIN 40 UNITS in SODIUM CHLORIDE 98 ML IVPB SCH (18:40)
[2020-12-07 20:26] LABS: BASO % 0.6 % (0-2.0); EOS % 0.2 % (0-4.5); HEMOGLOBIN 14.6 GM/dL (10.7-15.3); LYMPH % 1.6 % (8-40); MCH 27.4 pg (25.7-33.7); MCHC 31.1 g/dl (32.0-36.0); MEAN CELL VOLUME 87.9 fl (80-96); MONO % 2.4 % (3.8-10.2); NEUT % 95.2 % (42.8-82.8); RBC 5.34 M/mm3 (3.60-5.2); RDW 16.4 % (11.6-15.6); WHITE BLOOD COUNT 19.5 K/mm3 (4.0-10.0)
[2020-12-07 20:49] LABS: PLATELET ESTIMATE MARKEDLY DECREASED
[2020-12-07] MEDS ORDERED: CHLORHEXIDINE GLUCONATE 4% CLEANSER FOR DECOLONIZATION TP SCH (22:00)
[2020-12-08] MEDS: FENTANYL IVPB 500 MCG/100 ML BAG IVPB SCH ×4 (01:33→20:09)
[2020-12-08] MEDS: HYDROCORTISONE SOD SUCCINATE 100 MG/2 ML VIAL IVPUSH SCH ×3 (01:33→18:22)
[2020-12-08] MEDS ORDERED: MEROPENEM 1 GM VIAL (RESTRICTED TO ID) IVPB ONE ×2 (02:49→16:30)
[2020-12-08] MEDS ORDERED: DEXTROSE 5%-WATER 100 ML IVPB ONE ×2 (02:49→16:30)
[2020-12-08] MEDS: MIDAZOLAM IN 0.9 % SOD.CHLORID 100 MG/100 ML PLAST..BAG IVPB SCH ×2 (03:01→20:09)
[2020-12-08] MEDS: MEROPENEM 1 GM in DEXTROSE 5%-WATER 100 ML IVPB SCH ×2 (03:02→16:32)
[2020-12-08 07:15] LABS: HEMATOCRIT 42.7 % (32.4-45.2); HEMOGLOBIN 13.5 GM/dL (10.7-15.3); LYMPH % 1.6 % (8-40); MCH 27.5 pg (25.7-33.7); MCHC 31.5 g/dl (32.0-36.0); MEAN CELL VOLUME 87.2 fl (80-96); MEAN PLT VOLUME 14.9 fl (7.5-11.1); MONO % 2.3 % (3.8-10.2); NEUT % 96.1 % (42.8-82.8); RDW 16.7 % (11.6-15.6); WHITE BLOOD COUNT 19.4 K/mm3 (4.0-10.0)
[2020-12-08 07:26] LABS: PLATELET COUNT 36 K/MM3 (134-434)
[2020-12-08 08:31] LABS: LACTIC ACID 2.4 mmol/L (0.4-2.0)
[2020-12-08] MEDS: LACTATED RINGERS SOLUTION 1,000 ML/1,000 ML INFUS.BAG IV SCH ×2 (08:34→20:08)
[2020-12-08 08:40] LABS: BLOOD UREA NITROGEN 68.7 mg/dL (7-18); CALCIUM 7.2 mg/dL (8.5-10.1); MAGNESIUM 1.8 mg/dL (1.8-2.4)
[2020-12-08 08:41] LABS: ALBUMIN 1.1 g/dl (3.4-5.0)
[2020-12-08 08:43] LABS: CREATININE 1.5 mg/dL (0.55-1.3)
[2020-12-08 08:44] LABS: BILIRUBIN,TOTAL 0.8 mg/dL (0.2-1)
[2020-12-08 08:45] LABS: TOT PROT 3.9 g/dl (6.4-8.2)
[2020-12-08] MEDS ORDERED: VANCOMYCIN 1 GM in D5W (PRE-DOCKED) 1,000 MG/250 ML IVPB ONE (09:12)
[2020-12-08] MEDS: MUPIROCIN 2% TOPICAL OINTMENT FOR DECOLONIZATION NS SCH ×2 (09:29→21:10)
[2020-12-08] MEDS: PANTOPRAZOLE SODIUM 40 MG VIAL IVPUSH SCH ×2 (09:29→21:11)
[2020-12-08 10:16] LABS: ANISOCYTOSIS 0; HELMET CELLS 0; HOWELL-JOLLY BODIES 0; MACROCYTOSIS 0; OVALOCYTE 0; PLATELET ESTIMATE DECREASED; ROULEAU 0; SICKELED CELLS 0; TARGET CELLS 0; TEAR DROP CELLS 0; TOXIC GRANULATION 0
[2020-12-08 10:42] LABS: INR 1.33 (0.83-1.09)
[2020-12-08 10:44] LABS: ACTIVATED PTT 39.6 SECONDS (25.2-36.5)
[2020-12-08 11:05] LABS: CALCIUM 7.4 mg/dL (8.5-10.1)
[2020-12-08 11:06] LABS: ALBUMIN 1.1 g/dl (3.4-5.0); BLOOD UREA NITROGEN 66.9 mg/dL (7-18)
[2020-12-08 11:09] LABS: CREATININE 1.4 mg/dL (0.55-1.3)
[2020-12-08 11:11] LABS: BILIRUBIN,TOTAL 0.9 mg/dL (0.2-1); TOT PROT 3.8 g/dl (6.4-8.2)
[2020-12-08] MEDS ORDERED: MULTIVIT INJ. ADULT COMBO WITH VIT K 1 COMBO 10 ML VIAL IV SCH (13:00)
[2020-12-08] MEDS: NOREPINEPHRINE BITARTRATE 8,000 MCG/500 ML BAG IVPB SCH ×2 (13:25→20:09)
[2020-12-08] MEDS: FOLIC ACID IVPB SCH (16:33)
[2020-12-08] MEDS: SODIUM CHLORIDE IVPB SCH (16:33)
[2020-12-08] MEDS: [UNRECOGNIZED DRUG - OTHER] IVPB SCH (16:33)
[2020-12-08] MEDS: THIAMINE HCL IVPB SCH (16:33)
[2020-12-08] MEDS: VASOPRESSIN 40 UNITS in SODIUM CHLORIDE 98 ML IVPB SCH ×2 (16:58→20:09)
[2020-12-08] MEDS ORDERED: MEROPENEM 1 GM in DEXTROSE 5%-WATER 100 ML IVPB ONE (19:33)
[2020-12-08] MEDS: CHLORHEXIDINE GLUCONATE 4% CLEANSER FOR DECOLONIZATION TP SCH (21:10)
[2020-12-08] MEDS: MULTIVIT INJ. ADULT COMBO WITH VIT K 1 COMBO 10 ML VIAL IV SCH (21:19)
[2020-12-08] MEDS: AMINO ACIDS/PROTEIN HYDROLYS 30 ML LIQUID.PKT PO SCH (21:20)
[2020-12-08] MEDS ORDERED: MUPIROCIN 2% TOPICAL OINTMENT FOR DECOLONIZATION NS SCH (22:00)
[2020-12-08] MEDS ORDERED: CHLORHEXIDINE GLUCONATE 4% CLEANSER FOR DECOLONIZATION TP SCH (22:00)
[2020-12-09] MEDS: HYDROCORTISONE SOD SUCCINATE 100 MG/2 ML VIAL IVPUSH SCH ×3 (02:14→18:08)
[2020-12-09] MEDS ORDERED: DEXTROSE 5%-WATER 100 ML IVPB ONE ×2 (02:48→16:12)
[2020-12-09] MEDS ORDERED: MEROPENEM 1 GM VIAL (RESTRICTED TO ID) IVPB ONE ×2 (02:48→16:12)
[2020-12-09] MEDS: MEROPENEM 1 GM in DEXTROSE 5%-WATER 100 ML IVPB SCH ×2 (03:05→16:15)
[2020-12-09 06:51] LABS: BASO % 0.1 % (0-2.0); HEMATOCRIT 37.3 % (32.4-45.2); HEMOGLOBIN 12.3 GM/dL (10.7-15.3); LYMPH % 1.9 % (8-40); MCH 28.1 pg (25.7-33.7); MEAN CELL VOLUME 85.1 fl (80-96); MEAN PLT VOLUME 9.7 fl (7.5-11.1); MONO % 2.9 % (3.8-10.2); NEUT % 95.1 % (42.8-82.8); RBC 4.38 M/mm3 (3.60-5.2); RDW 16.1 % (11.6-15.6); WHITE BLOOD COUNT 18.4 K/mm3 (4.0-10.0)
[2020-12-09 07:07] LABS: INR 1.14 (0.83-1.09); PROTHROMBIN TIME (PATIENT) 13.7 SEC (9.7-13.0)
[2020-12-09 07:10] LABS: ACTIVATED PTT 34.7 SECONDS (25.2-36.5)
[2020-12-09 07:16] LABS: ALBUMIN 1.1 g/dl (3.4-5.0); BLOOD UREA NITROGEN 73.3 mg/dL (7-18); CALCIUM 7.1 mg/dL (8.5-10.1); MAGNESIUM 1.8 mg/dL (1.8-2.4)
[2020-12-09 07:19] LABS: CREATININE 1.5 mg/dL (0.55-1.3); PHOSPHOROUS 4.1 mg/dL (2.5-4.9)
[2020-12-09 07:21] LABS: BILIRUBIN,TOTAL 0.7 mg/dL (0.2-1); TOT PROT 3.6 g/dl (6.4-8.2)
[2020-12-09] MEDS: PANTOPRAZOLE SODIUM 40 MG VIAL IVPUSH SCH ×2 (09:44→21:23)
[2020-12-09] MEDS: MUPIROCIN 2% TOPICAL OINTMENT FOR DECOLONIZATION NS SCH ×2 (09:44→21:23)
[2020-12-09] MEDS: FENTANYL IVPB 500 MCG/100 ML BAG IVPB SCH ×2 (10:00→19:10)
[2020-12-09 10:12] LABS: PLATELET COUNT 28 K/MM3 (134-434)
[2020-12-09] MEDS: LACTATED RINGERS SOLUTION 1,000 ML/1,000 ML INFUS.BAG IV SCH (11:07)
[2020-12-09 11:29] LABS: ANISOCYTOSIS 1+; MACROCYTOSIS 1+; PLATELET ESTIMATE DECREASED; TEAR DROP CELLS 1+; TOXIC GRANULATION 2+
[2020-12-09] MEDS ORDERED: FOLIC ACID IVPB SCH ×2 (16:00)
[2020-12-09] MEDS ORDERED: [UNRECOGNIZED DRUG - OTHER] IVPB SCH ×2 (16:00)
[2020-12-09] MEDS ORDERED: THIAMINE HCL IVPB SCH ×2 (16:00)
[2020-12-09] MEDS ORDERED: SODIUM CHLORIDE IVPB SCH ×2 (16:00)
[2020-12-09] MEDS: MIDAZOLAM IN 0.9 % SOD.CHLORID 100 MG/100 ML PLAST..BAG IVPB SCH (19:10)
[2020-12-09] MEDS: NOREPINEPHRINE BITARTRATE 8,000 MCG/500 ML BAG IVPB SCH (21:22)
[2020-12-09] MEDS: CHLORHEXIDINE GLUCONATE 4% CLEANSER FOR DECOLONIZATION TP SCH (21:23)
[2020-12-09] MEDS: FAT EMUL/SOY/MCT/OLIV/FISH OIL 250 ML IV SCH (22:04)
[2020-12-10] MEDS: HYDROCORTISONE SOD SUCCINATE 100 MG/2 ML VIAL IVPUSH SCH ×3 (03:00→17:18)
[2020-12-10] MEDS ORDERED: MEROPENEM 1 GM VIAL (RESTRICTED TO ID) IVPB ONE ×2 (03:09→15:08)
[2020-12-10] MEDS ORDERED: DEXTROSE 5%-WATER 100 ML IVPB ONE ×2 (03:09→15:08)
[2020-12-10] MEDS: MEROPENEM 1 GM in DEXTROSE 5%-WATER 100 ML IVPB SCH ×2 (03:25→15:28)
[2020-12-10 07:18] LABS: BASO % 0.2 % (0-2.0); EOS % 0.1 % (0-4.5); HEMATOCRIT 39.7 % (32.4-45.2); HEMOGLOBIN 12.9 GM/dL (10.7-15.3); LYMPH % 0.4 % (8-40); MCHC 32.4 g/dl (32.0-36.0); MEAN CELL VOLUME 86.3 fl (80-96); MONO % 0.9 % (3.8-10.2); NEUT % 98.4 % (42.8-82.8); RDW 16.1 % (11.6-15.6); WHITE BLOOD COUNT 13.5 K/mm3 (4.0-10.0)
[2020-12-10 07:19] LABS: INR 0.99 (0.83-1.09); PROTHROMBIN TIME (PATIENT) 12.2 SEC (9.7-13.0)
[2020-12-10 07:21] LABS: ACTIVATED PTT 30.7 SECONDS (25.2-36.5)
[2020-12-10 07:24] LABS: PLATELET COUNT 26 K/MM3 (134-434)
[2020-12-10 07:34] LABS: CALCIUM 7.5 mg/dL (8.5-10.1)
[2020-12-10 07:35] LABS: ALBUMIN 1.2 g/dl (3.4-5.0); BLOOD UREA NITROGEN 82.6 mg/dL (7-18)
[2020-12-10 07:38] LABS: CREATININE 1.5 mg/dL (0.55-1.3); PHOSPHOROUS 3.9 mg/dL (2.5-4.9)
[2020-12-10 07:39] LABS: BILIRUBIN,TOTAL 0.7 mg/dL (0.2-1); TOT PROT 4.1 g/dl (6.4-8.2)
[2020-12-10] MEDS: VASOPRESSIN 40 UNITS in SODIUM CHLORIDE 98 ML IVPB SCH (09:32)
[2020-12-10] MEDS: MIDAZOLAM IN 0.9 % SOD.CHLORID 100 MG/100 ML PLAST..BAG IVPB SCH ×2 (09:32→20:54)
[2020-12-10] MEDS: NOREPINEPHRINE BITARTRATE 8,000 MCG/500 ML BAG IVPB SCH ×2 (09:32→20:53)
[2020-12-10] MEDS: FENTANYL IVPB 500 MCG/100 ML BAG IVPB SCH ×2 (09:33→20:54)
[2020-12-10] MEDS: PANTOPRAZOLE SODIUM 40 MG VIAL IVPUSH SCH ×2 (09:40→21:06)
[2020-12-10] MEDS: MUPIROCIN 2% TOPICAL OINTMENT FOR DECOLONIZATION NS SCH ×2 (09:41→21:06)
[2020-12-10 10:17] LABS: PLATELET ESTIMATE DECREASED
[2020-12-10] MEDS ORDERED: PT OWN MED DRAWER 7, Y5N ONE ×2 (12:27→13:28)
[2020-12-10] MEDS: CASPOFUNGIN ACETATE 50 MG in SODIUM CHLORIDE 250 ML IVPB SCH (12:33)
[2020-12-10 14:08] LABS: HLA CLASS 1 ANTIBODY Negative (Negative)
[2020-12-10] MEDS: LACTATED RINGERS SOLUTION 1,000 ML/1,000 ML INFUS.BAG IV SCH (16:00)
[2020-12-10] MEDS: [UNRECOGNIZED DRUG - OTHER] IVPB SCH (16:40)
[2020-12-10] MEDS: THIAMINE HCL IVPB SCH (16:40)
[2020-12-10] MEDS: SODIUM CHLORIDE IVPB SCH (16:40)
[2020-12-10] MEDS: FOLIC ACID IVPB SCH (16:40)
[2020-12-10] MEDS: FAT EMUL/SOY/MCT/OLIV/FISH OIL 250 ML IV SCH (21:06)
[2020-12-10] MEDS: CHLORHEXIDINE GLUCONATE 4% CLEANSER FOR DECOLONIZATION TP SCH (21:06)
[2020-12-11] MEDS: HYDROCORTISONE SOD SUCCINATE 100 MG/2 ML VIAL IVPUSH SCH ×3 (01:57→17:10)
[2020-12-11 03:09] LABS: BASO % 0.2 % (0-2.0); EOS % 0.1 % (0-4.5); HEMATOCRIT 38.9 % (32.4-45.2); HEMOGLOBIN 12.7 GM/dL (10.7-15.3); LYMPH % 0.5 % (8-40); MCH 28.1 pg (25.7-33.7); MCHC 32.5 g/dl (32.0-36.0); MEAN CELL VOLUME 86.3 fl (80-96); MEAN PLT VOLUME 11.5 fl (7.5-11.1); MONO % 0.4 % (3.8-10.2); NEUT % 98.8 % (42.8-82.8); RBC 4.51 M/mm3 (3.60-5.2); RDW 16.3 % (11.6-15.6); WHITE BLOOD COUNT 12.5 K/mm3 (4.0-10.0)
[2020-12-11 03:12] LABS: PLATELET COUNT 27 K/MM3 (134-434)
[2020-12-11] MEDS ORDERED: MEROPENEM 1 GM VIAL (RESTRICTED TO ID) IVPB ONE ×2 (03:48→15:51)
[2020-12-11] MEDS ORDERED: DEXTROSE 5%-WATER 100 ML IVPB ONE ×2 (03:48→15:52)
[2020-12-11] MEDS: MEROPENEM 1 GM in DEXTROSE 5%-WATER 100 ML IVPB SCH ×2 (03:51→16:39)
[2020-12-11] MEDS: FENTANYL IVPB 500 MCG/100 ML BAG IVPB SCH ×2 (06:29→21:09)
[2020-12-11 06:57] LABS: BASO % 0.2 % (0-2.0); HEMATOCRIT 39.6 % (32.4-45.2); HEMOGLOBIN 12.7 GM/dL (10.7-15.3); LYMPH % 0.5 % (8-40); MCH 28.1 pg (25.7-33.7); MCHC 32.2 g/dl (32.0-36.0); MEAN CELL VOLUME 87.4 fl (80-96); MONO % 2.1 % (3.8-10.2); NEUT % 97.2 % (42.8-82.8); RBC 4.53 M/mm3 (3.60-5.2); RDW 16.4 % (11.6-15.6); WHITE BLOOD COUNT 12.9 K/mm3 (4.0-10.0)
[2020-12-11 07:02] LABS: PROTHROMBIN TIME (PATIENT) 12.1 SEC (9.7-13.0)
[2020-12-11 07:04] LABS: ACTIVATED PTT 30.3 SECONDS (25.2-36.5)
[2020-12-11 07:15] LABS: CALCIUM 7.4 mg/dL (8.5-10.1)
[2020-12-11 07:16] LABS: ALBUMIN 1.4 g/dl (3.4-5.0); BLOOD UREA NITROGEN 94.9 mg/dL (7-18); MAGNESIUM 2.3 mg/dL (1.8-2.4)
[2020-12-11 07:19] LABS: CREATININE 1.5 mg/dL (0.55-1.3); PHOSPHOROUS 3.3 mg/dL (2.5-4.9)
[2020-12-11 07:21] LABS: BILIRUBIN,TOTAL 0.7 mg/dL (0.2-1); TOT PROT 4.2 g/dl (6.4-8.2)
[2020-12-11 07:27] LABS: PLATELET COUNT 23 K/MM3 (134-434)
[2020-12-11 08:51] LABS: ANISOCYTOSIS 1+; MACROCYTOSIS 0; PLATELET ESTIMATE DECREASED
[2020-12-11] MEDS: PANTOPRAZOLE SODIUM 40 MG VIAL IVPUSH SCH ×2 (10:30→21:24)
[2020-12-11] MEDS: MUPIROCIN 2% TOPICAL OINTMENT FOR DECOLONIZATION NS SCH ×2 (10:30→21:24)
[2020-12-11] MEDS: CASPOFUNGIN ACETATE 50 MG in SODIUM CHLORIDE 250 ML IVPB SCH (10:52)
[2020-12-11] MEDS ORDERED: PT OWN MED DRAWER 7, Y5N ONE (20:57)
[2020-12-11] MEDS: MIDAZOLAM IN 0.9 % SOD.CHLORID 100 MG/100 ML PLAST..BAG IVPB SCH (21:09)
[2020-12-11] MEDS: NOREPINEPHRINE BITARTRATE 8,000 MCG/500 ML BAG IVPB SCH (21:09)
[2020-12-11] MEDS: [UNRECOGNIZED DRUG - OTHER] IVPB SCH (21:10)
[2020-12-11] MEDS: FOLIC ACID IVPB SCH (21:10)
[2020-12-11] MEDS: SODIUM CHLORIDE IVPB SCH (21:10)
[2020-12-11] MEDS: THIAMINE HCL IVPB SCH (21:10)
[2020-12-11] MEDS: CHLORHEXIDINE GLUCONATE 4% CLEANSER FOR DECOLONIZATION TP SCH (21:24)
[2020-12-11] MEDS: FAT EMUL/SOY/MCT/OLIV/FISH OIL 250 ML IV SCH (21:24)
[2020-12-12] MEDS ORDERED: DEXTROSE 5%-WATER 100 ML IVPB ONE ×2 (01:07→02:53)
[2020-12-12] MEDS ORDERED: MEROPENEM 1 GM VIAL (RESTRICTED TO ID) IVPB ONE ×2 (01:07→02:53)
[2020-12-12] MEDS: HYDROCORTISONE SOD SUCCINATE 100 MG/2 ML VIAL IVPUSH SCH ×3 (01:09→17:09)
[2020-12-12] MEDS: FENTANYL IVPB 500 MCG/100 ML BAG IVPB SCH ×3 (03:00→21:25)
[2020-12-12] MEDS: MEROPENEM 1 GM in DEXTROSE 5%-WATER 100 ML IVPB SCH (03:01)
[2020-12-12 07:06] LABS: BASO % 0.1 % (0-2.0); HEMATOCRIT 36.3 % (32.4-45.2); HEMOGLOBIN 12.1 GM/dL (10.7-15.3); LYMPH % 0.6 % (8-40); MCH 28.8 pg (25.7-33.7); MCHC 33.4 g/dl (32.0-36.0); MEAN CELL VOLUME 86.2 fl (80-96); MEAN PLT VOLUME 9.4 fl (7.5-11.1); MONO % 2.4 % (3.8-10.2); NEUT % 96.9 % (42.8-82.8); RBC 4.21 M/mm3 (3.60-5.2); RDW 16.3 % (11.6-15.6); WHITE BLOOD COUNT 10.6 K/mm3 (4.0-10.0)
[2020-12-12 07:19] LABS: ALBUMIN 1.3 g/dl (3.4-5.0); MAGNESIUM 2.3 mg/dL (1.8-2.4)
[2020-12-12 07:21] LABS: CREATININE 1.4 mg/dL (0.55-1.3)
[2020-12-12 07:22] LABS: BILIRUBIN,TOTAL 0.7 mg/dL (0.2-1); PHOSPHOROUS 2.2 mg/dL (2.5-4.9); PLATELET COUNT 18 K/MM3 (134-434)
[2020-12-12] MEDS ORDERED: SODIUM PHOSPHATE - 15 MM in DEXTROSE 5%-WATER - 250 ML IVPB ONE (09:00)
[2020-12-12] MEDS: PANTOPRAZOLE SODIUM 40 MG VIAL IVPUSH SCH ×2 (09:15→21:26)
[2020-12-12] MEDS: MUPIROCIN 2% TOPICAL OINTMENT FOR DECOLONIZATION NS SCH ×2 (09:30→21:25)
[2020-12-12] MEDS: CASPOFUNGIN ACETATE 50 MG in SODIUM CHLORIDE 250 ML IVPB SCH (10:32)
[2020-12-12 10:48] LABS: ANISOCYTOSIS 1+; MACROCYTOSIS 1+; PLATELET ESTIMATE DECREASED
[2020-12-12] MEDS: FOLIC ACID IVPB SCH (18:54)
[2020-12-12] MEDS: SODIUM CHLORIDE IVPB SCH (18:54)
[2020-12-12] MEDS: [UNRECOGNIZED DRUG - OTHER] IVPB SCH (18:54)
[2020-12-12] MEDS: THIAMINE HCL IVPB SCH (18:54)
[2020-12-12] MEDS: NOREPINEPHRINE BITARTRATE 8,000 MCG/500 ML BAG IVPB SCH (21:23)
[2020-12-12] MEDS: CHLORHEXIDINE GLUCONATE 4% CLEANSER FOR DECOLONIZATION TP SCH (21:25)
[2020-12-12] MEDS: MIDAZOLAM IN 0.9 % SOD.CHLORID 100 MG/100 ML PLAST..BAG IVPB SCH (21:25)
[2020-12-12] MEDS: FAT EMUL/SOY/MCT/OLIV/FISH OIL 250 ML IV SCH (22:14)
[2020-12-13] MEDS: HYDROCORTISONE SOD SUCCINATE 100 MG/2 ML VIAL IVPUSH SCH ×2 (01:05→09:23)
[2020-12-13 06:57] LABS: HEMATOCRIT 34.1 % (32.4-45.2); HEMOGLOBIN 11.2 GM/dL (10.7-15.3); MCH 28.7 pg (25.7-33.7); MCHC 32.9 g/dl (32.0-36.0); MEAN CELL VOLUME 87.1 fl (80-96); MEAN PLT VOLUME 8.8 fl (7.5-11.1); PLATELET COUNT 122 K/MM3 (134-434); RBC 3.91 M/mm3 (3.60-5.2); RDW 16.5 % (11.6-15.6); WHITE BLOOD COUNT 11.7 K/mm3 (4.0-10.0)
[2020-12-13 07:16] LABS: CHLORIDE 106 mmol/L (98-107); SODIUM 140 mmol/L (136-145)
[2020-12-13 07:28] LABS: CALCIUM 7.7 mg/dL (8.5-10.1)
[2020-12-13 07:29] LABS: ANION GAP 8 MMOL/L (8-16); CO2 26 mmol/L (21-32); GLUCOSE,RANDOM 305 mg/dL (74-106); MAGNESIUM 2.6 mg/dL (1.8-2.4)
[2020-12-13 07:31] LABS: CREATININE 1.2 mg/dL (0.55-1.3)
[2020-12-13 07:32] LABS: PHOSPHOROUS 2.5 mg/dL (2.5-4.9); SGOT/AST 27 U/L (15-37); SGPT/ALT 19 U/L (13-61)
[2020-12-13 07:34] LABS: BILIRUBIN,TOTAL 0.9 mg/dL (0.2-1); TOT PROT 4.5 g/dl (6.4-8.2)
[2020-12-13 07:35] LABS: ALK PHOS 144 U/L (45-117)
[2020-12-13 07:36] LABS: ALBUMIN 1.8 g/dl (3.4-5.0); BLOOD UREA NITROGEN 108.1 mg/dL (7-18)
[2020-12-13] MEDS: PANTOPRAZOLE SODIUM 40 MG VIAL IVPUSH SCH ×2 (09:23→21:46)
[2020-12-13] MEDS ORDERED: PT OWN MED DRAWER 7, Y5N ONE (10:23)
[2020-12-13] MEDS: MUPIROCIN 2% TOPICAL OINTMENT FOR DECOLONIZATION NS SCH ×2 (10:25→22:35)
[2020-12-13] MEDS: CASPOFUNGIN ACETATE 50 MG in SODIUM CHLORIDE 250 ML IVPB SCH (11:31)
[2020-12-13] MEDS ORDERED: HYDROCORTISONE SOD SUCCINATE 100 MG/2 ML VIAL IVPUSH SCH (11:48)
[2020-12-13] MEDS ORDERED: FENTANYL IVPB 500 MCG/100 ML BAG IVPB ONE (12:35)
[2020-12-13] MEDS ORDERED: FENTANYL NS IVPB 500 MCG/100 ML BAG IVPB SCH (12:45)
[2020-12-13] MEDS ORDERED: ROCURONIUM BROMIDE 50 MG/5 ML SYRINGE ONE (14:15)
[2020-12-13] MEDS: THIAMINE HCL IVPB SCH (16:09)
[2020-12-13] MEDS: FOLIC ACID IVPB SCH (16:09)
[2020-12-13] MEDS: SODIUM CHLORIDE IVPB SCH (16:09)
[2020-12-13] MEDS: [UNRECOGNIZED DRUG - OTHER] IVPB SCH (16:09)
[2020-12-13] MEDS: MIDAZOLAM IN 0.9 % SOD.CHLORID 100 MG/100 ML PLAST..BAG IVPB SCH ×2 (19:00→19:23)
[2020-12-13] MEDS: NOREPINEPHRINE BITARTRATE 8,000 MCG/500 ML BAG IVPB SCH (19:23)
[2020-12-13] MEDS: FENTANYL NS IVPB 500 MCG/100 ML BAG IVPB SCH ×2 (19:24→19:30)
[2020-12-13] MEDS: FAT EMUL/SOY/MCT/OLIV/FISH OIL 250 ML IV SCH (21:46)
[2020-12-13] MEDS: CHLORHEXIDINE GLUCONATE 4% CLEANSER FOR DECOLONIZATION TP SCH (22:30)
[2020-12-14] MEDS: HYDROCORTISONE SOD SUCCINATE 100 MG/2 ML VIAL IVPUSH SCH ×3 (02:49→17:08)
[2020-12-14] MEDS: NOREPINEPHRINE BITARTRATE 8,000 MCG/500 ML BAG IVPB SCH ×2 (03:24→21:39)
[2020-12-14 06:03] LABS: BASO % 0.1 % (0-2.0); EOS % 0.3 % (0-4.5); HEMATOCRIT 37.9 % (32.4-45.2); HEMOGLOBIN 12.4 GM/dL (10.7-15.3); LYMPH % 0.9 % (8-40); MCH 28.1 pg (25.7-33.7); MCHC 32.7 g/dl (32.0-36.0); MEAN CELL VOLUME 86.1 fl (80-96); MEAN PLT VOLUME 9.7 fl (7.5-11.1); NEUT % 96.7 % (42.8-82.8); PLATELET COUNT 70 K/MM3 (134-434); RDW 16.4 % (11.6-15.6); WHITE BLOOD COUNT 14.8 K/mm3 (4.0-10.0)
[2020-12-14 06:21] LABS: INR 1.11 (0.83-1.09); PROTHROMBIN TIME (PATIENT) 13.6 SEC (9.7-13.0)
[2020-12-14 06:22] LABS: ALBUMIN 1.7 g/dl (3.4-5.0); CALCIUM 7.9 mg/dL (8.5-10.1)
[2020-12-14 06:23] LABS: BLOOD UREA NITROGEN 101.4 mg/dL (7-18); MAGNESIUM 2.4 mg/dL (1.8-2.4)
[2020-12-14 06:24] LABS: ACTIVATED PTT 27.9 SECONDS (25.2-36.5)
[2020-12-14 06:26] LABS: PHOSPHOROUS 2.7 mg/dL (2.5-4.9)
[2020-12-14 06:27] LABS: BILIRUBIN,TOTAL 1.3 mg/dL (0.2-1); TOT PROT 4.5 g/dl (6.4-8.2)
[2020-12-14] MEDS: PANTOPRAZOLE SODIUM 40 MG VIAL IVPUSH SCH ×2 (09:24→21:39)
[2020-12-14 09:29] LABS: ANISOCYTOSIS 0; MACROCYTOSIS 0; OVALOCYTE 1+; PLATELET ESTIMATE DECREASED
[2020-12-14] MEDS ORDERED: ALBUMIN HUMAN 25% 12.5 GM/50 ML VIAL IVPB SCH (09:30)
[2020-12-14] MEDS: MUPIROCIN 2% TOPICAL OINTMENT FOR DECOLONIZATION NS SCH ×2 (09:31→21:39)
[2020-12-14] MEDS ORDERED: ALBUMIN HUMAN 25% 100 ML VIAL IVPB ONE (10:50)
[2020-12-14] MEDS ORDERED: FUROSEMIDE 40 MG/4 ML INJECTABLE VIAL IVPUSH ONE (12:00)
[2020-12-14] MEDS: CASPOFUNGIN ACETATE 50 MG in SODIUM CHLORIDE 250 ML IVPB SCH (12:15)
[2020-12-14] MEDS ORDERED: FOLIC ACID IVPB SCH ×2 (16:00)
[2020-12-14] MEDS ORDERED: [UNRECOGNIZED DRUG - OTHER] IVPB SCH (16:00)
[2020-12-14] MEDS ORDERED: [UNRECOGNIZED DRUG - OTHER] IVPB SCH (16:00)
[2020-12-14] MEDS ORDERED: SODIUM CHLORIDE IVPB SCH ×2 (16:00)
[2020-12-14] MEDS ORDERED: THIAMINE HCL IVPB SCH ×2 (16:00)
[2020-12-14] MEDS: PROPOFOL 1,000,000 MCG/100 ML VIAL IVPB SCH (17:07)
[2020-12-14] MEDS: FENTANYL NS IVPB 500 MCG/100 ML BAG IVPB SCH (17:08)
[2020-12-14] MEDS ORDERED: PT OWN MED DRAWER 7, Y5N ONE (21:38)
[2020-12-14] MEDS: FAT EMUL/SOY/MCT/OLIV/FISH OIL 250 ML IV SCH (21:39)
[2020-12-14] MEDS: CHLORHEXIDINE GLUCONATE 4% CLEANSER FOR DECOLONIZATION TP SCH (21:39)
[2020-12-15] MEDS: HYDROCORTISONE SOD SUCCINATE 100 MG/2 ML VIAL IVPUSH SCH ×3 (01:14→17:00)
[2020-12-15 06:31] LABS: EOS % 0.1 % (0-4.5); HEMATOCRIT 32.1 % (32.4-45.2); HEMOGLOBIN 10.5 GM/dL (10.7-15.3); LYMPH % 1.1 % (8-40); MCH 27.9 pg (25.7-33.7); MCHC 32.8 g/dl (32.0-36.0); MEAN CELL VOLUME 85.1 fl (80-96); MONO % 1.7 % (3.8-10.2); NEUT % 97.1 % (42.8-82.8); PLATELET COUNT 53 K/MM3 (134-434); RBC 3.77 M/mm3 (3.60-5.2); RDW 16.4 % (11.6-15.6); WHITE BLOOD COUNT 13.2 K/mm3 (4.0-10.0)
[2020-12-15 06:33] LABS: INR 1.14 (0.83-1.09); PROTHROMBIN TIME (PATIENT) 13.7 SEC (9.7-13.0)
[2020-12-15] MEDS: FENTANYL NS IVPB 500 MCG/100 ML BAG IVPB SCH ×2 (06:33→19:49)
[2020-12-15 06:36] LABS: ACTIVATED PTT 29.4 SECONDS (25.2-36.5)
[2020-12-15 07:32] LABS: BLOOD UREA NITROGEN 102.5 mg/dL (7-18); CALCIUM 7.3 mg/dL (8.5-10.1); MAGNESIUM 2.2 mg/dL (1.8-2.4)
[2020-12-15 07:35] LABS: CREATININE 0.9 mg/dL (0.55-1.3)
[2020-12-15 07:36] LABS: PHOSPHOROUS 3.8 mg/dL (2.5-4.9)
[2020-12-15 07:37] LABS: BILIRUBIN,TOTAL 1.4 mg/dL (0.2-1); TOT PROT 4.3 g/dl (6.4-8.2)
[2020-12-15] MEDS ORDERED: PT OWN MED DRAWER 7, Y5N ONE ×4 (08:21→21:37)
[2020-12-15] MEDS: MUPIROCIN 2% TOPICAL OINTMENT FOR DECOLONIZATION NS SCH ×2 (09:26→21:39)
[2020-12-15] MEDS: PANTOPRAZOLE SODIUM 40 MG VIAL IVPUSH SCH ×2 (09:26→21:38)
[2020-12-15] MEDS ORDERED: FUROSEMIDE 40 MG/4 ML INJECTABLE VIAL IVPUSH ONE (09:45)
[2020-12-15] MEDS ORDERED: ALBUMIN HUMAN 25% 100 ML VIAL IVPB ONE (10:15)
[2020-12-15] MEDS: CASPOFUNGIN ACETATE 50 MG in SODIUM CHLORIDE 250 ML IVPB SCH (11:36)
[2020-12-15 13:51] LABS: ANISOCYTOSIS 0; MACROCYTOSIS 0; PLATELET ESTIMATE DECREASED
[2020-12-15 14:53] LABS: BASO % 0.2 % (0-2.0); HEMATOCRIT 33.5 % (32.4-45.2); HEMOGLOBIN 10.7 GM/dL (10.7-15.3); LYMPH % 1.5 % (8-40); MCH 27.4 pg (25.7-33.7); MEAN CELL VOLUME 85.5 fl (80-96); MEAN PLT VOLUME 11.3 fl (7.5-11.1); MONO % 1.6 % (3.8-10.2); NEUT % 96.7 % (42.8-82.8); PLATELET COUNT 59 K/MM3 (134-434); RBC 3.92 M/mm3 (3.60-5.2); RDW 16.6 % (11.6-15.6); WHITE BLOOD COUNT 14.5 K/mm3 (4.0-10.0)
[2020-12-15 15:19] LABS: ANISOCYTOSIS 2+; MACROCYTOSIS 0; PLATELET ESTIMATE DECREASED
[2020-12-15] MEDS: THIAMINE HCL IVPB SCH (18:20)
[2020-12-15] MEDS: SODIUM CHLORIDE IVPB SCH (18:20)
[2020-12-15] MEDS: FOLIC ACID IVPB SCH (18:20)
[2020-12-15] MEDS: [UNRECOGNIZED DRUG - OTHER] IVPB SCH (18:20)
[2020-12-15] MEDS: PROPOFOL 1,000,000 MCG/100 ML VIAL IVPB SCH (19:49)
[2020-12-15] MEDS: NOREPINEPHRINE BITARTRATE 8,000 MCG/500 ML BAG IVPB SCH (19:50)
[2020-12-15] MEDS: FAT EMUL/SOY/MCT/OLIV/FISH OIL 250 ML IV SCH (21:39)
[2020-12-15] MEDS: CHLORHEXIDINE GLUCONATE 4% CLEANSER FOR DECOLONIZATION TP SCH (21:39)
[2020-12-16] MEDS: HYDROCORTISONE SOD SUCCINATE 100 MG/2 ML VIAL IVPUSH SCH ×3 (01:21→17:53)
[2020-12-16 06:00] LABS: BASO % 0.1 % (0-2.0); EOS % 0.1 % (0-4.5); HEMATOCRIT 32.6 % (32.4-45.2); HEMOGLOBIN 10.4 GM/dL (10.7-15.3); LYMPH % 1.4 % (8-40); MCH 27.4 pg (25.7-33.7); MEAN CELL VOLUME 85.5 fl (80-96); MEAN PLT VOLUME 11.2 fl (7.5-11.1); NEUT % 97.4 % (42.8-82.8); PLATELET COUNT 57 K/MM3 (134-434); RBC 3.81 M/mm3 (3.60-5.2); WHITE BLOOD COUNT 13.9 K/mm3 (4.0-10.0)
[2020-12-16 06:06] LABS: INR 1.13 (0.83-1.09); PROTHROMBIN TIME (PATIENT) 13.9 SEC (9.7-13.0)
[2020-12-16 06:08] LABS: ACTIVATED PTT 29.9 SECONDS (25.2-36.5)
[2020-12-16 06:30] LABS: CHLORIDE 110 mmol/L (98-107); SODIUM 145 mmol/L (136-145)
[2020-12-16 06:34] LABS: CALCIUM 7.8 mg/dL (8.5-10.1)
[2020-12-16 06:35] LABS: ANION GAP 7 MMOL/L (8-16); CO2 27 mmol/L (21-32); MAGNESIUM 2.3 mg/dL (1.8-2.4)
[2020-12-16 06:37] LABS: SGPT/ALT 20 U/L (13-61)
[2020-12-16 06:38] LABS: CREATININE 0.8 mg/dL (0.55-1.3); PHOSPHOROUS 4.5 mg/dL (2.5-4.9); SGOT/AST 31 U/L (15-37)
[2020-12-16 06:40] LABS: ALK PHOS 147 U/L (45-117); BILIRUBIN,TOTAL 1.4 mg/dL (0.2-1); TOT PROT 4.6 g/dl (6.4-8.2)
[2020-12-16 06:43] LABS: ALBUMIN 2.4 g/dl (3.4-5.0); BLOOD UREA NITROGEN 104.3 mg/dL (7-18)
[2020-12-16] MEDS: PANTOPRAZOLE SODIUM 40 MG VIAL IVPUSH SCH ×2 (09:31→21:27)
[2020-12-16] MEDS: MUPIROCIN 2% TOPICAL OINTMENT FOR DECOLONIZATION NS SCH ×2 (09:36→21:28)
[2020-12-16] MEDS: CASPOFUNGIN ACETATE 50 MG in SODIUM CHLORIDE 250 ML IVPB SCH (10:24)
[2020-12-16 10:55] LABS: ANISOCYTOSIS 1+; MACROCYTOSIS 0; OVALOCYTE 1+; PLATELET ESTIMATE DECREASED; TARGET CELLS 1+; TEAR DROP CELLS 1+; TOXIC GRANULATION 2+
[2020-12-16] MEDS ORDERED: ROCURONIUM BROMIDE 50 MG/5 ML SYRINGE ONE (11:13)
[2020-12-16] MEDS ORDERED: dilTIAZem HCL 50 MG/10 ML - 10 ML VIAL IVPUSH ONE (14:10)
[2020-12-16] MEDS ORDERED: dilTIAZem HCL 125 MG/25 ML - 25 ML VIAL ONE (14:13)
[2020-12-16] MEDS: PROPOFOL 1,000,000 MCG/100 ML VIAL IVPB SCH ×2 (14:19→17:52)
[2020-12-16] MEDS ORDERED: METOPROLOL TARTRATE 5 MG/5 ML VIAL IVPUSH PRN (14:34)
[2020-12-16] MEDS: FENTANYL NS IVPB 500 MCG/100 ML BAG IVPB SCH ×2 (14:43→17:52)
[2020-12-16] MEDS ORDERED: ALBUMIN HUMAN 25% 100 ML VIAL IVPB ONE (15:00)
[2020-12-16] MEDS: FOLIC ACID IVPB SCH (16:09)
[2020-12-16] MEDS: THIAMINE HCL IVPB SCH (16:09)
[2020-12-16] MEDS: [UNRECOGNIZED DRUG - OTHER] IVPB SCH (16:09)
[2020-12-16] MEDS: SODIUM CHLORIDE IVPB SCH (16:09)
[2020-12-16] MEDS: NOREPINEPHRINE BITARTRATE 8,000 MCG/500 ML BAG IVPB SCH (21:28)
[2020-12-16] MEDS: CHLORHEXIDINE GLUCONATE 4% CLEANSER FOR DECOLONIZATION TP SCH (21:28)
[2020-12-16] MEDS: FAT EMUL/SOY/MCT/OLIV/FISH OIL 250 ML IV SCH (21:28)
[2020-12-17] MEDS ORDERED: NOREPINEPHRINE NS PREMIX 8,000 MCG/500 ML BAG IVPB SCH (00:45)
[2020-12-17] MEDS: HYDROCORTISONE SOD SUCCINATE 100 MG/2 ML VIAL IVPUSH SCH ×3 (01:05→17:20)
[2020-12-17 06:24] LABS: BASO % 0.1 % (0-2.0); EOS % 0.2 % (0-4.5); HEMOGLOBIN 10.1 GM/dL (10.7-15.3); MCH 27.5 pg (25.7-33.7); MCHC 31.4 g/dl (32.0-36.0); MEAN CELL VOLUME 87.6 fl (80-96); MEAN PLT VOLUME 9.6 fl (7.5-11.1); MONO % 0.7 % (3.8-10.2); PLATELET COUNT 80 K/MM3 (134-434); RBC 3.66 M/mm3 (3.60-5.2); RDW 16.6 % (11.6-15.6)
[2020-12-17 06:43] LABS: CHLORIDE 110 mmol/L (98-107); SODIUM 142 mmol/L (136-145)
[2020-12-17 06:47] LABS: ALBUMIN 2.6 g/dl (3.4-5.0); ANION GAP 6 MMOL/L (8-16); CALCIUM 7.8 mg/dL (8.5-10.1); CO2 26 mmol/L (21-32)
[2020-12-17 06:48] LABS: GLUCOSE,RANDOM 201 mg/dL (74-106); MAGNESIUM 2.4 mg/dL (1.8-2.4)
[2020-12-17 06:50] LABS: PHOSPHOROUS 6.1 mg/dL (2.5-4.9)
[2020-12-17 06:51] LABS: CREATININE 0.9 mg/dL (0.55-1.3); SGOT/AST 28 U/L (15-37); SGPT/ALT 21 U/L (13-61)
[2020-12-17 06:52] LABS: BILIRUBIN,TOTAL 1.6 mg/dL (0.2-1)
[2020-12-17 06:53] LABS: ALK PHOS 137 U/L (45-117)
[2020-12-17] MEDS: NOREPINEPHRINE D5W PREMIX 16,000 MCG/500 ML BAG IVPB SCH (06:59)
[2020-12-17] MEDS ORDERED: VASOPRESSIN 20 UNITS/ML VIAL IV ONE (07:03)
[2020-12-17] MEDS: VASOPRESSIN 40 UNITS in SODIUM CHLORIDE 98 ML IVPB SCH (07:29)
[2020-12-17 09:48] LABS: ANISOCYTOSIS 1+; MACROCYTOSIS 0; PLATELET ESTIMATE DECREASED
[2020-12-17] MEDS: PANTOPRAZOLE SODIUM 40 MG VIAL IVPUSH SCH ×2 (10:08→21:37)
[2020-12-17] MEDS: FENTANYL NS IVPB 500 MCG/100 ML BAG IVPB SCH ×2 (10:08→17:20)
[2020-12-17] MEDS: MUPIROCIN 2% TOPICAL OINTMENT FOR DECOLONIZATION NS SCH ×2 (10:09→21:37)
[2020-12-17] MEDS: CASPOFUNGIN ACETATE 50 MG in SODIUM CHLORIDE 250 ML IVPB SCH (12:13)
[2020-12-17] MEDS: PROPOFOL 1,000,000 MCG/100 ML VIAL IVPB SCH (14:12)
[2020-12-17] MEDS ORDERED: [UNRECOGNIZED DRUG - OTHER] IVPB SCH (16:00)
[2020-12-17] MEDS ORDERED: FOLIC ACID IVPB SCH (16:00)
[2020-12-17] MEDS ORDERED: THIAMINE HCL IVPB SCH (16:00)
[2020-12-17] MEDS ORDERED: SODIUM CHLORIDE IVPB SCH (16:00)
[2020-12-17] MEDS: CHLORHEXIDINE GLUCONATE 4% CLEANSER FOR DECOLONIZATION TP SCH (21:37)
[2020-12-17] MEDS: FAT EMUL/SOY/MCT/OLIV/FISH OIL 250 ML IV SCH (21:37)
[2020-12-18] MEDS: NOREPINEPHRINE D5W PREMIX 16,000 MCG/500 ML BAG IVPB SCH ×2 (00:45→10:43)
[2020-12-18] MEDS: HYDROCORTISONE SOD SUCCINATE 100 MG/2 ML VIAL IVPUSH SCH ×3 (01:01→18:27)
[2020-12-18 06:49] LABS: BASO % 0.1 % (0-2.0); HEMATOCRIT 29.9 % (32.4-45.2); HEMOGLOBIN 9.4 GM/dL (10.7-15.3); LYMPH % 0.9 % (8-40); MCH 27.5 pg (25.7-33.7); MCHC 31.6 g/dl (32.0-36.0); MEAN CELL VOLUME 87.1 fl (80-96); MONO % 2.1 % (3.8-10.2); NEUT % 96.9 % (42.8-82.8); PLATELET COUNT 65 K/MM3 (134-434); RBC 3.44 M/mm3 (3.60-5.2); RDW 16.8 % (11.6-15.6); WHITE BLOOD COUNT 21.5 K/mm3 (4.0-10.0)
[2020-12-18 07:03] LABS: CHLORIDE 110 mmol/L (98-107); SODIUM 143 mmol/L (136-145)
[2020-12-18 07:11] LABS: ALBUMIN 2.4 g/dl (3.4-5.0); ANION GAP 5 MMOL/L (8-16); CALCIUM 7.9 mg/dL (8.5-10.1); CO2 28 mmol/L (21-32)
[2020-12-18 07:12] LABS: GLUCOSE,RANDOM 232 mg/dL (74-106); MAGNESIUM 2.4 mg/dL (1.8-2.4)
[2020-12-18 07:15] LABS: PHOSPHOROUS 5.9 mg/dL (2.5-4.9); SGOT/AST 33 U/L (15-37)
[2020-12-18 07:16] LABS: BILIRUBIN,TOTAL 1.7 mg/dL (0.2-1); SGPT/ALT 19 U/L (13-61); TOT PROT 4.7 g/dl (6.4-8.2)
[2020-12-18 07:17] LABS: ALK PHOS 151 U/L (45-117)
[2020-12-18 07:22] LABS: BLOOD UREA NITROGEN 125.6 mg/dL (7-18)
[2020-12-18] MEDS: FENTANYL NS IVPB 500 MCG/100 ML BAG IVPB SCH ×2 (08:17→16:35)
[2020-12-18 10:07] LABS: ANISOCYTOSIS 2+; MACROCYTOSIS 1+; PLATELET ESTIMATE DECREASED; TARGET CELLS 1+
[2020-12-18] MEDS ORDERED: PT OWN MED DRAWER 7, Y5N ONE ×3 (10:32→19:43)
[2020-12-18] MEDS: PANTOPRAZOLE SODIUM 40 MG VIAL IVPUSH SCH ×2 (10:37→21:33)
[2020-12-18] MEDS: MUPIROCIN 2% TOPICAL OINTMENT FOR DECOLONIZATION NS SCH (10:42)
[2020-12-18] MEDS: CASPOFUNGIN ACETATE 50 MG in SODIUM CHLORIDE 250 ML IVPB SCH (12:10)
[2020-12-18] MEDS: VASOPRESSIN 40 UNITS in SODIUM CHLORIDE 98 ML IVPB SCH ×2 (15:13→15:14)
[2020-12-18] MEDS: PROPOFOL 1,000,000 MCG/100 ML VIAL IVPB SCH ×3 (15:14→18:34)
[2020-12-18] MEDS ORDERED: FOLIC ACID IVPB SCH (16:00)
[2020-12-18] MEDS ORDERED: [UNRECOGNIZED DRUG - OTHER] IVPB SCH (16:00)
[2020-12-18] MEDS ORDERED: THIAMINE HCL IVPB SCH (16:00)
[2020-12-18] MEDS ORDERED: SODIUM CHLORIDE IVPB SCH (16:00)
[2020-12-18] MEDS: CHLORHEXIDINE GLUCONATE 4% CLEANSER FOR DECOLONIZATION TP SCH (21:33)
[2020-12-18] MEDS: FAT EMUL/SOY/MCT/OLIV/FISH OIL 250 ML IV SCH (21:33)
[2020-12-19] MEDS: NOREPINEPHRINE D5W PREMIX 16,000 MCG/500 ML BAG IVPB SCH (00:45)
[2020-12-19] MEDS: HYDROCORTISONE SOD SUCCINATE 100 MG/2 ML VIAL IVPUSH SCH ×3 (01:12→17:47)
[2020-12-19] MEDS ORDERED: NOREPINEPHRINE NS PREMIX 16,000 MCG/500 ML BAG IVPB ONE ×2 (05:34→21:51)
[2020-12-19] MEDS ORDERED: fentaNYL CITRATE 250 MCG/5 ML VIAL ONE (07:06)
[2020-12-19] MEDS: VASOPRESSIN 40 UNITS in SODIUM CHLORIDE 98 ML IVPB SCH (07:15)
[2020-12-19] MEDS ORDERED: VASOPRESSIN 20 UNITS/ML VIAL IV ONE (08:13)
[2020-12-19] MEDS ORDERED: PT OWN MED DRAWER 7, Y5N ONE ×2 (10:03→17:41)
[2020-12-19] MEDS: PANTOPRAZOLE SODIUM 40 MG VIAL IVPUSH SCH ×2 (10:39→22:17)
[2020-12-19] MEDS: CASPOFUNGIN ACETATE 50 MG in SODIUM CHLORIDE 250 ML IVPB SCH (12:09)
[2020-12-19] MEDS: PROPOFOL 1,000,000 MCG/100 ML VIAL IVPB SCH (14:00)
[2020-12-19] MEDS ORDERED: NOREPINEPHRINE BITARTRATE 4 MG/4 ML ML IV ONE (15:40)
[2020-12-19] MEDS ORDERED: THIAMINE HCL IVPB SCH (16:00)
[2020-12-19] MEDS ORDERED: SODIUM CHLORIDE IVPB SCH (16:00)
[2020-12-19] MEDS ORDERED: FOLIC ACID IVPB SCH (16:00)
[2020-12-19] MEDS ORDERED: [UNRECOGNIZED DRUG - OTHER] IVPB SCH (16:00)
[2020-12-19] MEDS: FENTANYL NS IVPB 500 MCG/100 ML BAG IVPB SCH (17:52)
[2020-12-19 21:04] VITALS: BMI 28.0
[2020-12-19] MEDS: FAT EMUL/SOY/MCT/OLIV/FISH OIL 250 ML IV SCH (22:17)
[2020-12-19] MEDS: CHLORHEXIDINE GLUCONATE 4% CLEANSER FOR DECOLONIZATION TP SCH (22:18)
[2020-12-20] MEDS: NOREPINEPHRINE D5W PREMIX 16,000 MCG/500 ML BAG IVPB SCH (00:03)
[2020-12-20] MEDS: HYDROCORTISONE SOD SUCCINATE 100 MG/2 ML VIAL IVPUSH SCH ×3 (01:34→18:24)
[2020-12-20 06:49] LABS: HEMOGLOBIN 8.9 GM/dL (10.7-15.3); MCH 27.9 pg (25.7-33.7); MCHC 30.9 g/dl (32.0-36.0); MEAN CELL VOLUME 90.4 fl (80-96); MEAN PLT VOLUME 11.2 fl (7.5-11.1); RDW 17.3 % (11.6-15.6)
[2020-12-20] MEDS: VASOPRESSIN 40 UNITS in SODIUM CHLORIDE 98 ML IVPB SCH ×2 (07:15→21:04)
[2020-12-20 07:27] LABS: CHLORIDE 109 mmol/L (98-107); SODIUM 141 mmol/L (136-145)
[2020-12-20 07:32] LABS: ALBUMIN 1.9 g/dl (3.4-5.0); CALCIUM 7.3 mg/dL (8.5-10.1)
[2020-12-20 07:34] LABS: ANION GAP 9 MMOL/L (8-16); CO2 22 mmol/L (21-32); GLUCOSE,RANDOM 256 mg/dL (74-106); MAGNESIUM 2.4 mg/dL (1.8-2.4)
[2020-12-20 07:37] LABS: PHOSPHOROUS 5.8 mg/dL (2.5-4.9); SGOT/AST 32 U/L (15-37)
[2020-12-20 07:38] LABS: BILIRUBIN,TOTAL 2.4 mg/dL (0.2-1); CREATININE 1.5 mg/dL (0.55-1.3); TOT PROT 4.3 g/dl (6.4-8.2)
[2020-12-20 07:42] LABS: ALK PHOS 200 U/L (45-117); SGPT/ALT 18 U/L (13-61)
[2020-12-20 07:55] LABS: BLOOD UREA NITROGEN 147.1 mg/dL (7-18)
[2020-12-20 08:41] LABS: PLATELET COUNT 24 K/MM3 (134-434); WHITE BLOOD COUNT 35.3 K/mm3 (4.0-10.0)
[2020-12-20] MEDS: PANTOPRAZOLE SODIUM 40 MG VIAL IVPUSH SCH ×2 (11:09→21:04)
[2020-12-20] MEDS: CASPOFUNGIN ACETATE 50 MG in SODIUM CHLORIDE 250 ML IVPB SCH (11:10)
[2020-12-20] MEDS ORDERED: SODIUM CHLORIDE IVPB SCH (16:00)
[2020-12-20] MEDS ORDERED: FOLIC ACID IVPB SCH (16:00)
[2020-12-20] MEDS ORDERED: THIAMINE HCL IVPB SCH (16:00)
[2020-12-20] MEDS ORDERED: [UNRECOGNIZED DRUG - OTHER] IVPB SCH (16:00)
[2020-12-20] MEDS ORDERED: PT OWN MED DRAWER 7, Y5N ONE ×2 (16:15→21:11)
[2020-12-20] MEDS: PROPOFOL 1,000,000 MCG/100 ML VIAL IVPB SCH (16:26)
[2020-12-20] MEDS: FENTANYL NS IVPB 500 MCG/100 ML BAG IVPB SCH (16:29)
[2020-12-20] MEDS ORDERED: NOREPINEPHRINE BITARTRATE 8,000 MCG/500 ML BAG IVPB ONE (16:41)
[2020-12-20] MEDS ORDERED: NOREPINEPHRINE BITARTRATE 4 MG/4 ML ML IV ONE (16:42)
[2020-12-20] MEDS: CHLORHEXIDINE GLUCONATE 4% CLEANSER FOR DECOLONIZATION TP SCH (21:04)
[2020-12-20] MEDS: FAT EMUL/SOY/MCT/OLIV/FISH OIL 250 ML IV SCH (21:24)
[2020-12-21] MEDS: NOREPINEPHRINE D5W PREMIX 16,000 MCG/500 ML BAG IVPB SCH (02:40)
[2020-12-21] MEDS: HYDROCORTISONE SOD SUCCINATE 100 MG/2 ML VIAL IVPUSH SCH (02:40)
[2020-12-21 07:15] VITALS: TEMP 96.5
[2020-12-21] MEDS ORDERED: PT OWN MED DRAWER 7, Y5N ONE (09:16)
[2020-12-21 09:23] VITALS: BP 58/34; PULSE 71
== END 2020-12-21 09:37 | disposition expired | DRG 981 ==
LOC: JER 10:33 → JERBED 11:07 → J2W 11-23 01:47 → J4W 12-03 17:28 → J6S 12-04 23:10 → JICU 12-06 04:37
PROVIDERS: ADMIT Internal Medicine; ATTEND Internal Medicine Pulmonary Disease
PROC: 05HM33Z Insertion of Infusion Device into Right Internal Jugular Vein, Percutaneous Approach (ICD-10-PCS; principal; 2020-11-22)
PROC: B543ZZA Ultrasonography of Right Jugular Veins, Guidance (ICD-10-PCS; 2020-11-22)
PROC: 0DU707Z Supplement Stomach, Pylorus with Autologous Tissue Substitute, Open Approach (ICD-10-PCS; 2020-11-23)
PROC: 3E1M38Z Irrigation of Peritoneal Cavity using Irrigating Substance, Percutaneous Approach (ICD-10-PCS; 2020-11-23)
PROC: 0BH17EZ Insertion of Endotracheal Airway into Trachea, Via Natural or Artificial Opening (ICD-10-PCS; 2020-11-23)
PROC: 5A1955Z Respiratory Ventilation, Greater than 96 Consecutive Hours (ICD-10-PCS; 2020-11-23)
PROC: 0D9670Z Drainage of Stomach with Drainage Device, Via Natural or Artificial Opening (ICD-10-PCS; 2020-11-27)
PROC: 2W03X6Z Change Pressure Dressing on Abdominal Wall (ICD-10-PCS; 2020-12-06)
PROC: 05HM33Z Insertion of Infusion Device into Right Internal Jugular Vein, Percutaneous Approach (ICD-10-PCS; 2020-12-07)
PROC: B543ZZA Ultrasonography of Right Jugular Veins, Guidance (ICD-10-PCS; 2020-12-07)
PROC: 0WQF0ZZ Repair Abdominal Wall, Open Approach (ICD-10-PCS; 2020-12-13)
PROC: 3E1M38Z Irrigation of Peritoneal Cavity using Irrigating Substance, Percutaneous Approach (ICD-10-PCS; 2020-12-13)
PROC: 2W03X6Z Change Pressure Dressing on Abdominal Wall (ICD-10-PCS; 2020-12-16)
PROC: 3E10X8Z Irrigation of Skin and Mucous Membranes using Irrigating Substance (ICD-10-PCS; 2020-12-16)
DX: J96.01 Acute respiratory failure with hypoxia (principal); K25.5 Chronic or unspecified gastric ulcer with perforation; K65.9 Peritonitis, unspecified; I50.33 Acute on chronic diastolic (congestive) heart failure; R65.21 Severe sepsis with septic shock; I33.0 Acute and subacute infective endocarditis; E43 Unspecified severe protein-calorie malnutrition; A41.89 Other specified sepsis; E87.2 Acidosis; I24.8 Other forms of acute ischemic heart disease; J44.1 Chronic obstructive pulmonary disease with (acute) exacerbation; R64 Cachexia; N39.0 Urinary tract infection, site not specified; J98.11 Atelectasis; N17.9 Acute kidney failure, unspecified; I47.1 Supraventricular tachycardia; J96.02 Acute respiratory failure with hypercapnia; I27.20 Pulmonary hypertension, unspecified; I11.0 Hypertensive heart disease with heart failure; R57.0 Cardiogenic shock; B95.7 Other staphylococcus as the cause of diseases classified elsewhere; D72.829 Elevated white blood cell count, unspecified; Z68.27 Body mass index [BMI] 27.0-27.9, adult; I95.9 Hypotension, unspecified; R50.9 Fever, unspecified; K21.9 Gastro-esophageal reflux disease without esophagitis; I48.0 Paroxysmal atrial fibrillation; I46.9 Cardiac arrest, cause unspecified; K66.8 Other specified disorders of peritoneum; D69.6 Thrombocytopenia, unspecified; Z85.3 Personal history of malignant neoplasm of breast
CPT/HCPCS: 36415; 36430; 36511; 36600; 71045-TC-FY; 71260-TC; 74018-TC-FY; 74176-TC; 74177-TC; 76775-TC; 76856-TC; 80048; 80053; 81003; 82248; 82542; 82550; 82570; 82728; 82803; 82962; 83605; 83615; 83735; 83880; 84100; 84300; 84478; 84484; 85025; 85027; 85379; 85384; 85610; 85730; 86022; 86140; 86850; 86900; 86901; 87040; 87070; 87075; 87076; 87077; 87086; 87186; 87205; 87804; 93005; 93010; 93306-TC; 93308; 93970-TC; 94002; 94640; 94660; 94760; 97116-GP; 97162-GP; 99285-25; C9803; J0131; J0637; J1644; P9034; P9038; Q9967; U0003; U0005